=== PATIENT | male | born 1940 | race Caucasian/White ===

== ENCOUNTER → 2018-09-19 10:08 | Outpatient (CLI) | payer OTHER, SELFPAY ==
[2018-09-19 11:31] LABS: Add Manual Diff / Slide Review NO; Basophils Absolute Auto 100 /uL (0-100); Eosinophils Absolute Auto 300 /uL (0-450); Eosinophils Percent Auto 3.9 % (2-4); Hematocrit 38.8 % (41-53); Hemoglobin 12.8 g/dL (13.5-17.5); Lymphocytes Absolute Auto 1000 /uL (1100-4500); Mean Corpuscular HGB Conc 32.9 % (30-36); Mean Corpuscular Hemoglobin 32.8 PG (26-34); Mean Corpuscular Volume 99.8 fL (80-100); Monocytes Absolute Auto 800 /uL (0-900); Monocytes Percent Auto 9.4 % (3-14); Neutrophils Absolute Auto 6600 /uL (1500-7000); Neutrophils Percent Auto 74.7 % (50-75); Platelet Count 241 X10^3/uL (150-400); Red Blood Cell Count 3.89 X10^6/uL (4.5-5.9); Red Cell Distribution Width 14.3 % (11.6-14.8); White Blood Cell Count 8.9 X10^3/uL (4.5-11.0)
[2018-09-19 12:23] LABS: Hemoglobin A1C% w Est Avg Glu 6.7 % (4.0-6.0)
[2018-09-19 12:37] LABS: BUN Creatinine Ratio 19.3 (6-22); Blood Urea Nitrogen 29 mg/dL (9-20); Calcium 9.6 mg/dL (8.4-10.2); Carbon Dioxide 27 mmol/L (22-32); Chloride 100 mmol/L (98-107); Estimated Glomerular Filt Rate 45.6 mL/min (>60); Glucose 148 mg/dL (80-110); HEMOLYSIS < 15 (0-50); Potassium 5.1 mmol/L (3.4-5.1); Sodium 139 mmol/L (137-145)
== END ==
PROVIDERS: PCP Hospitalist; Visit Provider Physician Assistant
DX: R73.9 Hyperglycemia, unspecified (principal); Z01.818 Encounter for other preprocedural examination
CPT/HCPCS: 36415; 80048; 83036; 85025

== ENCOUNTER 2018-10-10 10:11 | Inpatient (IN) | payer OTHER, SELFPAY ==
[2018-09-20 12:38] VITALS: BMI 31.1
[2018-10-10] VITALS (21 sets, daily range): BP systolic 157–204; BP diastolic 63–100; PULSE 55–92; RESP 10–27; TEMP 36–36.9; O2SAT 86–100; BMI 31.1
[2018-10-10] MEDS: LACTATED RINGERS 1,000 ML 42 ML IV ×2 (11:17→15:08)
--- NOTE | 2018-10-10 11:42 | PM.PREOP ---
Pre-operative Note Interval Note History & Physical reviewed/Exam performed by Physician: Yes Changes to H&P: No
[2018-10-10] MEDS: CEFAZOLIN 2 GM/100 ML FROZ.PIGGY IV ×2 (12:05→21:03)
--- NOTE | 2018-10-10 12:56 | SUR.OPER ---
Supine, head on gel donut. Arms padded with gel pads, tucked at sides, towel roll under shoulders. Safety belt at thigh. Legs uncrossed.
--- NOTE | 2018-10-10 13:14 | SUR.OPER ---
CBG = 124
--- NOTE | 2018-10-10 14:29 | P.OP_ITS ---
Operative Date/Time/Diagnoses Date of procedure: 10/10/18 Time of procedure: 12:26 Pre-op diagnosis: 1. C4-5, C5-6 spinal stenosis 2. 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 C4-5, C5-6 anterior cervical diskectomy and fusion 2. C4-5, C5-6 anterior interbody cage placement 3. C4-5, C5-6 anterior instrumentation with plate and screw placement in C4, C5, C6 vertebrae 4. Utilization of microsurgical technique and operating microscope Same procedure as scheduled: Yes Indications: Patient has been having chronic neck pain and worsening cervical radiculopathy. Patient failed multiple conservative management with worsening pain weakness and numbness in her upper extremity. Patient has been having difficulty performing activity of daily living. After discussing risks benefits of treatment options, patient elected proceed with surgery. Surgeon: Mahnaz Mederos Multiple Punch Press Operator: Rubi Mock Click Yes if Unassisted: No Anesthesia Type: General Operative Notes Closure Type: primary Specimen(s): none sent Prosthetic devices, grafts, tissues, transplants, or devices: GLobus extend plate, PEEK cages Estimated Blood Loss (mL): 10 Blood products transfused: none Procedure in detail: Patient was seen in the preoperative area. Risks and benefits of the surgery was discussed with the patient. Operative consent was obtained and placed in the chart. Patient was then taken to the operative room. Prophylactic antibiotic was given less than 0.5 hr prior to skin incision. General anesthesia was administered. Patient was placed into a supine position on her radiolucent table. Bilateral shoulders were taped down to allow proper C- arm imaging. Anterior cervical area was prepped and draped in a sterile fashion. Time-out was performed at this time. Using lateral C-arm imaging, the level between C4 and C6 was identified and marked on patient's neck. A oblique incision from midline towards medial border of sternocleidomastoid muscle was made. The platysma muscle was incised in line with skin incision. Metzenbaum scissor was used to develop the plane between the medial border of sternocleidomastoid d and the strap muscles medially. The carotid sheath and its contents were identified and protected behind the hand- held retractor during the entire case. The plane between the carotid sheath and strap muscles was developed with Metzenbaum scissors. Dissection was made down to the level of the anterior cervical fascia. Longus colli muscle was incised on the anterior aspect of vertebral bodies bilaterally from C4-6. Spinal needle was placed into the C5-6 disc space and confirmed with lateral C-arm imaging. Using microsurgical technique and operative microscope, anterior cervical diskectomy was performed at C4-5, C5-6 level. This was done by removing the disc material, removing the anterior and posterior osteophytes posterior longitudinal ligaments along with performing bilateral foraminotomies at both levels. Patient was found to have severe central and foraminal stenosis at both levels. Patient's stenosis was fully decompressed after decompression was completed. After the diskectomy was completed, 2 anterior interbody cages were obtained. The cages were packed with globus via cell bone grafting material. One cage each along with the bone grafting material was then packed into the interbody spaces from C4-5, C5-6 with one cage into each interbody level. After the cages were placed, the anterior cervical plate was stabilized to the C4-5, C5-6 vertebrae using 2 screws at each each level. Total 6 screws were placed. After confirming placement of the hardware with AP and lateral C-arm imaging, the screws were locked into the plate using the locking mechanism and torque limiting screwdriver. After the hardware was placed and confirmed with AP and lateral C-arm imaging, the wound was irrigated with sterile normal saline. The platysma muscle and the subcutaneous tissue was closed with 2-0 Vicryl. The skin was closed with 4-0Monocryl and Steri-Strips. Patient tolerated the procedure well. Patient was transferred recovery room in stable condition. There were no complications. Complications: none Condition: stable Disposition: PACU Plan for aftercare: Admit to inpatient hospital
--- NOTE | 2018-10-10 14:36 | DI.RAD.S_ITS ---
PROCEDURE: XR CERVICAL SPINE 2V OR 3V INDICATIONS: C4-5, C5-6 ACDF TECHNIQUE: 2 intraoperative fluoroscopic view(s) of the cervical spine were acquired. COMPARISON: None. FINDINGS: Intraoperative fluoroscopic images of cervical spine shows anterior fusion of 3 cervical spine vertebral bodies. Alignment of cervical spine is anatomic. IMPRESSION: Fluoroscopy guidance was provided intraoperatively for anterior fusion of 3 cervical spine vertebral bodies. Dictated by: Tj Montoya M.D. on 10/10/2018 at 15:01 Approved by: Tj Montoya M.D. on 10/10/2018 at 15:04
--- NOTE | 2018-10-10 14:55 | SUR.PHASEI ---
Dr. Sandhu continues to be at bedside. Pt c/o having neck pain. Dr. Sandhu medicated pt with 50 mcg Fentayl IV.
--- NOTE | 2018-10-10 15:04 | SUR.PHASEI ---
labetalol 20mg IV given per anesthesia, see anesthesia record.
[2018-10-10] MEDS: AMLODIPINE 5 MG TABLET PO ×2 (15:13→21:08)
--- NOTE | 2018-10-10 15:13 | SUR.PHASEI ---
IV SITE ON LEFT HAND CLEAR AND INTACT, INFUSING WITHOUT ANY DIFFICULTLY.
--- NOTE | 2018-10-10 15:27 | SUR.PHASEI ---
REPORT CALLED TO [facility] IN ICU. PER DR. GAYTAN, PT OK TO BE TRANSFERRED TO ICU AT THIS TIME. PT IN STABLE CONDITION, VSS. PT SITTING UP IN BED WITH EYES CLOSED, EASILY RESPONDS TO RN WHEN SPOKEN TO. IV SITE CLEAR AND INFUSING WITHOUT DIFFICULTLY. PT DENIES ANY NAUSEA. PT HAS EQUAL STRENGTH/SENSTATION IN ALL FOUR EXTREMITIES. PT TOLERATING ICE CHIPS WITHOUT ANY DIFFICULTLY. DRSG OBSERVED TO BE C/D/I AND SOFT COLLAR IN PLACE.
--- NOTE | 2018-10-10 15:50 | SUR.PHASEI ---
PT TRANSFERRED TO ICU IN STABLE CONDITION, VSS REMAINED STABLE. PT TRANSFERRED ON 4L NASAL CANNULA, 02 SATS AT 96-98%. PT TALKING TO RN DURING TRANSPORT TO ICU. BEDSIDE REPORT GIVEN TO [facility] UPON ARRIVAL TO ICU ROOM. TRANSFERRED CARE OF PT TO [facility] AT THAT TIME.
[2018-10-10] MEDS: OXYCODONE IR 5 MG TABLET 10 MG PO ×2 (16:03→19:02)
[2018-10-10] MEDS: SODIUM CHLORIDE 0.9% 1,000 ML 100 ML IV (16:16)
[2018-10-10] MEDS: ASCORBIC ACID 500 MG TABLET PO ×2 (16:21→21:08)
--- NOTE | 2018-10-10 16:41 | PC.NURSE ---
Addendum entered by Miriam Oneill R.N. 10/10/18 16:59: 1659 - Dr. Huddleston gave verbal order to give tonight's dose of metoprolol now. BP 163/70. Original Note: 1545 - Patient brought to room 104 by PACU nurse. Alert and oriented with pleasant affect. States pain is 8/10. Dressing to neck C/D/I. 98% on 2L O2. CPAP at bedside. Oriented to room and call light, call light within reach. in room.
[2018-10-10] MEDS: METOPROLOL IR 25 MG TABLET PO (17:01)
[2018-10-10] MEDS: INSULIN GLARGINE 100 UNIT/ML 3ML PEN 60 UNIT SUBCUT (17:27)
[2018-10-10] MEDS: INSULIN ASPART 100 UNIT/ML INSULN PEN SUBCUT ×2 (17:28→20:44)
[2018-10-10] MEDS: INSULIN ASPART 100 UNIT/ML INSULN PEN 20 UNIT SUBCUT (17:28)
--- NOTE | 2018-10-10 18:07 | PM.CN ---
History of Present Illness Date Patient Seen: 10/10/18 Chief complaint: [id number] C3-6 ACDF Reason for consult: Hypertension Requesting provider: Alen Sandhu Narrative: George Lo is a 77-year-old male with past medical history significant for coronary artery disease status post AR and CABG x3 with 2 of 3 vessel occlusion and collaterals with recent stress test demonstrating emmy-infarct around fixed defect, claudication with 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 Hospitalist service was consulted for postoperative hypertension and possible lateral ischemia on EKG. Dr. Sandhu of anesthesiology called hospitalist service during postop PACU recovery and reported hypertension with SBP 180-190s with EKG changes of ST deviation in lateral leads. At that time due to patient's complex past medical history, called on-call crimp setter Dr. Valdivia who related that this was likely hypertension causing cardiac strain and to control his blood pressure closely. Instructed anesthesiology to give the patient labetalol 20 mg IV x1 and his long-acting antihypertensive amlodipine 5 mg once. The patient's blood pressure responded appropriately and his systolic blood pressure has come down to the 160s. The patient is resting in bed comfortably. He reports + 5/10 neck pain which he is a high level for him. He reports a +3/10 would be manageable. He also reports that it is hard to make his head position comfortable. Otherwise, he denies headache, vision changes, lightheadedness, dizziness, chest pain, shortness of breath, abdominal pain, nausea, vomiting, fever, chills, previous dysuria, diarrhea or constipation. He has not voided since surgery. He is eating dinner and reports good appetite. FORMERLY [facility], [facility] Medical History Anemia (Acute) Arteriosclerotic heart disease (ASHD) (Acute) BPH (benign prostatic hyperplasia) (Acute) CKD (chronic kidney disease), stage III (Acute) Chronic gastritis (Acute) Chronic low back pain (Acute) Constipation (Acute) BRYANT (dyspnea on exertion) (Acute) Degenerative arthritis of spine (Acute) Diabetes mellitus with renal manifestation (Acute) Disease of thyroid gland (Acute) Easy bruisability (Acute) Erectile dysfunction (Acute) Former smoker (Acute) Gynecomastia (Acute) Hypercalcemia (Acute) Hyperlipidemia (Acute) Hypertension (Acute) Impaired hearing (Acute) Impairment of balance (Acute) Leg pain, bilateral (Acute) Median nerve palsy (Acute) Numbness (Acute) ALEJANDRA on CPAP (Acute) Pneumonia (Acute) Sciatic pain (Acute) Sickle cell anemia (Acute) Spinal stenosis (Acute) Urinary retention (Acute) Surgical History History of arthroplasty of left shoulder (Acute) History of arthroplasty of right knee (Acute) History of bilateral carpal tunnel release (Acute) History of colonoscopy (Acute) History of lumbar fusion (Acute 01/11/17) History of parathyroid surgery (Acute) History of vasectomy (Acute) Hx of appendectomy (Acute) Hx of arthroscopy of right knee (Acute) Hx of tonsillectomy (Acute) S/P CABG x 3 (Acute) S/P TURP (status post transurethral resection of prostate) (Acute) Status post cataract extraction of both eyes with insertion of intraocular lens (Acute) Family History Father Heart attack Mother No problems noted. Social History household members: spouse Smoking Status: Former smoker alcohol intake: former Family History Father Heart attack Mother No problems noted. Social History household members: spouse Smoking Status: Former smoker alcohol intake: former Comment: Patient has been for 57 years. He has 4 children who are all healthy. He is a previous smoker of 3 PPD x 30 years, quit in 1989. Meds Home Medications Medication Instructions Recorded Confirmed Type FERROUS SULFATE 325 mg PO QAM #0 12/25/16 10/10/18 History Novolog Flexpen U-100 Insulin 14 unit SQ QAM #0 12/25/16 10/10/18 History amlodipine [Norvasc] 5 mg PO HS #0 12/25/16 10/10/18 History ascorbic acid (vitamin C) 500 mg PO TID #0 12/25/16 09/20/18 History aspirin 81 mg PO BEDTIME #0 12/25/16 10/10/18 History atorvastatin [Lipitor] 80 mg PO BEDTIME #0 12/25/16 10/10/18 History calcium carbonate [Tums] 500 mg PO BID #0 12/25/16 10/10/18 History cholecalciferol (vitamin D3) 2,000 iu PO BID #0 12/25/16 10/10/18 History [Vitamin D3] insulin glargine [Lantus Solostar 60 unit SQ QPM #0 12/25/16 09/20/18 History U-100 Insulin] lisinopril 5 mg PO QDAY #0 12/25/16 09/20/18 History magnesium oxide 500 mg PO QDAY #0 12/25/16 10/10/18 History metoprolol tartrate 25 mg PO BID #0 12/25/16 10/10/18 History potassium chloride 10 meq PO BID #0 12/25/16 10/10/18 History insulin aspart U-100 [Novolog 12 unit SUBCUT QNOON 09/20/18 09/20/18 History PenFill U-100 Insulin] insulin aspart U-100 [Novolog 1 - 8 unit SUBCUT DAILY PRN 09/20/18 09/20/18 History U-100 Insulin aspart] insulin aspart U-100 [Novolog 20 unit SUBCUT QPM 09/20/18 09/20/18 History U-100 Insulin aspart] Allergies Allergy/AdvReac Type Severity Reaction Status Date / Time NSAIDS (Non-Steroidal AdvReac Severe No NSAIDs Verified 10/10/18 10:48 Anti-Inflamma due to Kidney Disease No Known Allergies Allergy Uncoded 11/28/17 11:54 Review of Systems Review of Systems A 10 system comprehensive review of systems was conducted with the patient and found to be negative except as above in the History of Present Illness. Exam Vital Signs (past 8 hours): - 10/10/18 10:53 10/10/18 14:33 10/10/18 14:38 Temperature 96.8 F L 97.6 F Pulse Rate 56 L 92 H 86 Respiratory Rate 15 17 12 Blood Pressure 158/74 H 176/81 H 182/100 H Pulse Oximetry 98 86 L 93 10/10/18 14:43 10/10/18 14:48 10/10/18 14:53 Temperature Pulse Rate 82 84 81 Respiratory Rate 19 17 14 Blood Pressure 191/96 H 204/94 H 199/98 H Pulse Oximetry 98 97 98 10/10/18 14:58 10/10/18 15:03 10/10/18 15:08 Temperature Pulse Rate 74 61 57 L Respiratory Rate 18 10 L 10 L Blood Pressure 185/88 H 157/66 H 170/71 H Pulse Oximetry 95 95 99 10/10/18 15:13 10/10/18 15:18 10/10/18 15:28 Temperature Pulse Rate 64 62 55 L Respiratory Rate 10 L 10 L 12 Blood Pressure 168/77 H 167/80 H 168/76 H Pulse Oximetry 99 98 100 10/10/18 15:33 10/10/18 15:45 10/10/18 16:00 Temperature 97.1 F L Pulse Rate 60 56 L 56 L Respiratory Rate 14 18 27 H Blood Pressure 171/77 H 168/63 H Pulse Oximetry 98 97 97 Oxygen Delivery Method Nasal Cannula Oxygen Flow Rate 6 Narrative Exam Narrative: General: Elderly male with neck roll in place lying in bed and in no acute distress, appears comfortable, well-developed, well-nourished, appropriately interactive. HEENT: Normocephalic, atraumatic. External ears without defect. Pupils equal, round, and reactive to light. Anicteric sclerae, moist conjunctivae, and no lid lag. Oropharynx free of erythema and cobble stoning with moist mucosa. Neck: Supple with full range of motion. No lymphadenopathy or thyromegaly. Cardiovascular: Regular rate and rhythm without murmurs, rubs, or gallops appreciated. Pulmonary: Clear to auscultation bilaterally in anterior lung lopez without crackles, wheezes, or rhonchi. Normal respiratory effort with no use of accessory muscles. Abdomen: Soft, bowel sounds present, nontender, nondistended. No hepatosplenomegaly or masses appreciated. Extremities: No clubbing, cyanosis, or edema. Skin: Normal temperature, turgor, and texture; no rash, ulcers, or subcutaneous nodules appreciated. Several small abrasions on left pretibial area. Neurological: Cranial nerves grossly intact. Psychiatric: Normal mood and affect. Alert and oriented to person, place, and time. Objective Labs Result Diagrams: 10/11/18 04:59 10/11/18 04:59 Labs: Laboratory Results - last 24 hr 10/10/18 16:10 Nasal Screen MRSA (PCR) Negative for mrsa Assessment & Plan Assessment & Plan narrative: George Lo is a 77-year-old male with past medical history significant for coronary artery disease status post AR and CABG x3 with 2 of 3 vessel occlusion and collaterals with recent stress test demonstrating emmy-infarct around fixed defect, claudication with 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 Hospitalist service was consulted for postoperative hypertension and possible lateral ischemia on EKG. 1. Postoperative hypertension, not present on admission. Active. -Likely multifactorial related to: Pain and NPO not on normal antihypertensives. -Called on-call crimp setter, Dr. Valdivia, who related that this was likely hypertension causing cardiac strain in lateral leads on EKG and to control his blood pressure closely. -Patient postoperatively received labetalol 20 mg IV x1 and amlodipine 5 mg x1 per transitional living specialist crimp setter, Dr. Valdivia. -Will continue patient's home antihypertensive including amlodipine 5 mg daily bedtime, lisinopril 5 mg daily, and metoprolol tartrate 25 mg twice daily. -Ordered labetalol 20 mg IV every 4 hr as needed to be given for SBP greater than 180 sustained for 30 min. -Continue to monitor closely in ICU on telemetry with blood pressures every 15-30 min as patient is high risk of postoperative AR. -Control postoperative pain per Orthopedics. 2. Coronary artery disease status post CABG x3 with 2 of 3 vessel occlusion and collaterals, present on admission. Presumed stable. -Continue cardiac medications including: Aspirin 81 mg daily, amlodipine 5 mg daily at bedtime, atorvastatin 80 mg daily bedtime, lisinopril 5 mg daily, and metoprolol tartrate 25 mg twice daily. 3. 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 Active. -Defer to Orthopedics for postoperative and pain management. 4. Diabetes mellitus type 2, insulin using, present on admission. Stable. -Hemoglobin A1c 6.7% on 09/19/2018. -Continue home Lantus 60 units daily at bedtime. Will continue nutritional insulin once taking in good p.o. intake. -Ordered medium dose correctional scale insulin. 5. Chronic kidney disease stage 2, present on admission. Stable. -Baseline creatinine 1.5. Ordered CMP, pending. -Avoid nephrotoxin agents. -Optimize renal perfusion. -Monitor renal function closely. Thank you for consulting our services. We will follow along with you.
[2018-10-10] MEDS: LABETALOL 20 MG/4 ML SYRINGE IV (18:26)
[2018-10-10 21:05] LABS: Add Manual Diff / Slide Review NO; Basophils Absolute Auto 0 /uL (0-100); Basophils Percent Auto 0.3 % (0-2); Eosinophils Absolute Auto 0 /uL (0-450); Hematocrit 39.2 % (41-53); Lymphocytes Absolute Auto 400 /uL (1100-4500); Lymphocytes Percent Auto 2.7 % (25-40); Mean Corpuscular HGB Conc 33.1 % (30-36); Mean Corpuscular Hemoglobin 32.2 PG (26-34); Mean Corpuscular Volume 97.2 fL (80-100); Monocytes Absolute Auto 200 /uL (0-900); Monocytes Percent Auto 1.5 % (3-14); Neutrophils Absolute Auto 15000 /uL (1500-7000); Neutrophils Percent Auto 95.5 % (50-75); Platelet Count 243 X10^3/uL (150-400); Red Blood Cell Count 4.04 X10^6/uL (4.5-5.9); Red Cell Distribution Width 14.9 % (11.6-14.8); White Blood Cell Count 15.7 X10^3/uL (4.5-11.0)
[2018-10-10] MEDS: CALCIUM CARBONATE 500 MG TAB PO (21:08)
[2018-10-10] MEDS: ASPIRIN EC 81 MG TABLET PO (21:08)
[2018-10-10] MEDS: CHOLECALCIFEROL (VITAMIN D3) 1,000 UNIT TABLET 2000 UNIT PO (21:08)
[2018-10-10] MEDS: ATORVASTATIN 20 MG TABLET 80 MG PO (21:08)
[2018-10-10] MEDS: POTASSIUM CHLORIDE 10 MEQ TAB PO (21:09)
[2018-10-10] MEDS: SENNOSIDES 8.6 MG TABLET 17.2 MG PO (21:09)
[2018-10-10] MEDS: DOCUSATE 100 MG CAPSULE PO (21:09)
[2018-10-10 21:20] LABS: Alanine Aminotransferase 37 IU/L (21-72); Albumin 4.3 g/dL (3.5-5.0); Albumin Globulin Ratio 1.5 (1.0-2.8); Alkaline Phosphatase 114 U/L (38-126); Aspartate Aminotransferase 24 IU/L (17-59); Bilirubin Total 0.4 mg/dL (0.2-1.3); Blood Urea Nitrogen 30 mg/dL (9-20); Carbon Dioxide 23 mmol/L (22-32); Chloride 99 mmol/L (98-107); Estimated Glomerular Filt Rate 45.6 mL/min (>60); Globulin 2.9 g/dL (1.7-4.1); Glucose 241 mg/dL (80-110); HEMOLYSIS < 15 (0-50); Potassium 4.4 mmol/L (3.4-5.1); Sodium 137 mmol/L (137-145); Total Protein 7.2 g/dL (6.3-8.2)
[2018-10-10 21:29] LABS: Troponin I < 0.012 ng/mL (0.01-0.034)
[2018-10-10 22:00] LABS: Thyroid Stimulating Hormone 1.25 uIU/mL (0.47-4.68)
--- NOTE | 2018-10-10 22:46 | PC.NURSE ---
4843 - Patient has not urinated since PACU. Attempted to urinate into urinal at bedside without success. Stated that he has had catheters in the past and then had trouble getting off of them. Bladder scan shows 575 in bladder. Patient states 500 is nothing for me, I used to straight cath myself and get 1000 in the mornings. Discussed possibly placing cevallos catheter this evening. Patient refuses cevallos placement at this time stating that he would like to wait a bit longer and try to urinate again. Patient drinking water and IV fluids running per order.
[2018-10-11] VITALS (12 sets, daily range): BP systolic 139–193; BP diastolic 63–85; PULSE 61–84; RESP 14–20; TEMP 36–37.2; O2SAT 92–96
[2018-10-11] MEDS: SODIUM CHLORIDE 0.9% 1,000 ML 100 ML IV (02:56)
[2018-10-11] MEDS: CEFAZOLIN 2 GM/100 ML FROZ.PIGGY IV (04:04)
[2018-10-11 06:08] LABS: BUN Creatinine Ratio 21.4 (6-22); Blood Urea Nitrogen 30 mg/dL (9-20); Calcium 8.8 mg/dL (8.4-10.2); Carbon Dioxide 22 mmol/L (22-32); Chloride 98 mmol/L (98-107); Estimated Glomerular Filt Rate 49.4 mL/min (>60); Glucose 272 mg/dL (80-110); HEMOLYSIS < 15 (0-50); Potassium 5.1 mmol/L (3.4-5.1); Sodium 134 mmol/L (137-145)
[2018-10-11 06:16] LABS: Add Manual Diff / Slide Review NO; Basophils Absolute Auto 0 /uL (0-100); Basophils Percent Auto 0.1 % (0-2); Eosinophils Absolute Auto 0 /uL (0-450); Hematocrit 35.9 % (41-53); Hemoglobin 12.1 g/dL (13.5-17.5); Lymphocytes Absolute Auto 400 /uL (1100-4500); Lymphocytes Percent Auto 2.5 % (25-40); Mean Corpuscular HGB Conc 33.8 % (30-36); Mean Corpuscular Hemoglobin 32.8 PG (26-34); Monocytes Absolute Auto 800 /uL (0-900); Monocytes Percent Auto 4.8 % (3-14); Neutrophils Absolute Auto 15600 /uL (1500-7000); Neutrophils Percent Auto 92.6 % (50-75); Platelet Count 241 X10^3/uL (150-400); Red Cell Distribution Width 14.5 % (11.6-14.8); White Blood Cell Count 16.8 X10^3/uL (4.5-11.0)
--- NOTE | 2018-10-11 07:32 | PM.PN.1 ---
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 Hospitalist service was consulted for postoperative hypertension and possible lateral ischemia on EKG. The patient is resting in bed comfortably. He reports no neck pain currently. Blood pressure well-controlled with patient's oral regimen and pain control. He denies headache, lightheadedness or dizziness, vision changes, shortness of breath, chest pain, abdominal pain, nausea, vomiting, fever, chills, dysuria, diarrhea or constipation. He is voiding and eliminating without difficulty. He or she is up ambulating without or with assistance. Exam Vital Signs (past 8 hours): - 10/11/18 00:00 10/11/18 01:00 10/11/18 02:00 Temperature 96.8 F L Pulse Rate 84 75 71 Respiratory Rate 16 15 16 Blood Pressure 158/72 H 143/64 H 139/68 Pulse Oximetry 92 93 93 10/11/18 03:00 10/11/18 04:00 Temperature 98.9 F Pulse Rate 80 66 Respiratory Rate 15 14 Blood Pressure 176/83 H 150/63 H Pulse Oximetry 94 96 Oxygen Delivery Method Nasal Cannula Oxygen Flow Rate 6 Narrative Exam Narrative: General: Elderly male with neck roll in place lying in bed and in no acute distress, appears comfortable, well-developed, well-nourished, appropriately interactive. HEENT: Normocephalic, atraumatic. External ears without defect. Pupils equal, round, and reactive to light. Anicteric sclerae, moist conjunctivae, and no lid lag. Oropharynx free of erythema and cobble stoning with moist mucosa. Neck: Supple with full range of motion. No lymphadenopathy or thyromegaly. Cardiovascular: Regular rate and rhythm without murmurs, rubs, or gallops appreciated. Pulmonary: Clear to auscultation bilaterally in anterior lung lopez without crackles, wheezes, or rhonchi. Normal respiratory effort with no use of accessory muscles. Abdomen: Soft, bowel sounds present, nontender, nondistended. No hepatosplenomegaly or masses appreciated. Extremities: No clubbing, cyanosis, or edema. Skin: Normal temperature, turgor, and texture; no rash, ulcers, or subcutaneous nodules appreciated. Neurological: Cranial nerves grossly intact. Psychiatric: Normal mood and affect. Alert and oriented to person, place, and time. Objective Labs Result Diagrams: 10/11/18 04:59 10/11/18 04:59 Labs: Laboratory Results - last 24 hr 10/10/18 10/10/18 10/10/18 16:10 21:01 21:01 WBC 15.7 H RBC 4.04 L Hgb 13.0 L Hct 39.2 L MCV 97.2 MCH 32.2 MCHC 33.1 RDW 14.9 H Plt Count 243 Neut % (Auto) 95.5 H Lymph % (Auto) 2.7 L Richardson % (Auto) 1.5 L Eos % (Auto) 0.0 L Baso % (Auto) 0.3 Neut # (Auto) 00651 H Lymph # (Auto) 400 L Richardson # (Auto) 200 Eos # (Auto) 0 Baso # (Auto) 0 Sodium 137 Potassium 4.4 Chloride 99 Carbon Dioxide 23 BUN 30 H Creatinine 1.50 H Estimated GFR 45.6 L BUN/Creatinine Ratio 20.0 Glucose 241 H Calcium 9.0 Magnesium 2.0 Total Bilirubin 0.4 AST 24 ALT 37 Alkaline Phosphatase 114 Troponin I < 0.012 Total Protein 7.2 Albumin 4.3 Globulin 2.9 Albumin/Globulin Ratio 1.5 TSH Nasal Screen MRSA (PCR) Negative for mrsa 10/10/18 10/11/18 10/11/18 21:01 04:59 04:59 WBC 16.8 H RBC 3.70 L Hgb 12.1 L Hct 35.9 L MCV 97.0 MCH 32.8 MCHC 33.8 RDW 14.5 Plt Count 241 Neut % (Auto) 92.6 H Lymph % (Auto) 2.5 L Richardson % (Auto) 4.8 Eos % (Auto) 0.0 L Baso % (Auto) 0.1 Neut # (Auto) 61931 H Lymph # (Auto) 400 L Richardson # (Auto) 800 Eos # (Auto) 0 Baso # (Auto) 0 Sodium 134 L Potassium 5.1 Chloride 98 Carbon Dioxide 22 BUN 30 H Creatinine 1.40 H Estimated GFR 49.4 L BUN/Creatinine Ratio 21.4 Glucose 272 H Calcium 8.8 Magnesium Total Bilirubin AST ALT Alkaline Phosphatase Troponin I Total Protein Albumin Globulin Albumin/Globulin Ratio TSH 1.25 Nasal Screen MRSA (PCR) Assessment & Plan Assessment & Plan narrative: George Lo is a 77-year-old male with past medical history significant for coronary artery disease status post SD and CABG x3 with 2 of 3 vessel occlusion and collaterals with recent stress test demonstrating emmy-infarct around fixed defect, claudication with 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 Hospitalist service was consulted for postoperative hypertension and possible lateral ischemia on EKG. 1. Postoperative hypertension, not present on admission. Controlled and significant hypertension resolved . -Likely multifactorial related to: Pain and NPO not on normal antihypertensives. -Called on-call consulting solution director, Dr. Valdivia, who related that this was likely hypertension causing cardiac strain in lateral leads on EKG and to control his blood pressure closely. -Patient postoperatively received labetalol 20 mg IV x1 and amlodipine 5 mg x1 per waste elimination consulting solution director, Dr. Valdivia. -Will continue patient's home antihypertensive including amlodipine 5 mg daily bedtime, lisinopril 5 mg daily, and metoprolol tartrate 25 mg twice daily. -Ordered labetalol 20 mg IV every 4 hr as needed to be given for SBP greater than 180 sustained for 30 min. -Troponin negative. -Continue to monitor vital signs and telemetry closely as patient is high risk of postoperative SD. Recommend patient follow up closely with his consulting solution director outpatient. -Control postoperative pain control per Orthopedics. 2. Coronary artery disease status post CABG x3 with 2 of 3 vessel occlusion and collaterals, present on admission. Presumed stable. -Continue cardiac medications including: Aspirin 81 mg daily, amlodipine 5 mg daily at bedtime, atorvastatin 80 mg daily bedtime, lisinopril 5 mg daily, and metoprolol tartrate 25 mg twice daily. -Continue to monitor closely on telemetry. 3. 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 Active. -Defer to Orthopedics for postoperative and pain management. 4. Acute leukocytosis, secondary to recent surgery, not present on admission. Stable. -Patient status post is extensive cervical surgery. -Patient has no signs of infection. -Continue to monitor CBC daily. 5. Diabetes mellitus type 2, insulin using, present on admission. Stable. -Hemoglobin A1c 6.7% on 09/19/2018. -Continue home insulin regimen including: Lantus 60 units daily at bedtime, nutritional and correctional scale insulin. 6. Chronic kidney disease stage 2, present on admission. Stable. -Baseline creatinine 1.5. Creatinine unchanged. -Avoid nephrotoxin agents. -Optimize renal perfusion. -Monitor renal function closely. Thank you for consulting our services. We will sign off at this time. Please don't hesitate to call for questions or further assistance if needed.
--- NOTE | 2018-10-11 07:37 | P.PN_ITS ---
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 Hospitalist service was consulted for postoperative hypertension and possible lateral ischemia on EKG. The patient is resting in bed comfortably. He reports no neck pain currently. Blood pressure well-controlled with patient's oral regimen and pain control. He denies headache, lightheadedness or dizziness, vision changes, shortness of breath, chest pain, abdominal pain, nausea, vomiting, fever, chills, dysuria, diarrhea or constipation. He is voiding and eliminating without difficulty. He or she is up ambulating without or with assistance. Exam Vital Signs (past 8 hours): - 10/11/18 00:00 10/11/18 01:00 10/11/18 02:00 Temperature 96.8 F L Pulse Rate 84 75 71 Respiratory Rate 16 15 16 Blood Pressure 158/72 H 143/64 H 139/68 Pulse Oximetry 92 93 93 10/11/18 03:00 10/11/18 04:00 Temperature 98.9 F Pulse Rate 80 66 Respiratory Rate 15 14 Blood Pressure 176/83 H 150/63 H Pulse Oximetry 94 96 Oxygen Delivery Method Nasal Cannula Oxygen Flow Rate 6 Narrative Exam Narrative: General: Elderly male with neck roll in place lying in bed and in no acute distress, appears comfortable, well-developed, well-nourished, appropriately interactive. HEENT: Normocephalic, atraumatic. External ears without defect. Pupils equal, round, and reactive to light. Anicteric sclerae, moist conjunctivae, and no lid lag. Oropharynx free of erythema and cobble stoning with moist mucosa. Neck: Supple with full range of motion. No lymphadenopathy or thyromegaly. Cardiovascular: Regular rate and rhythm without murmurs, rubs, or gallops ap preciated. Pulmonary: Clear to auscultation bilaterally in anterior lung lopez without crackles, wheezes, or rhonchi. Normal respiratory effort with no use of accessory muscles. Abdomen: Soft, bowel sounds present, nontender, nondistended. No hepatosplenomegaly or masses appreciated. Extremities: No clubbing, cyanosis, or edema. Skin: Normal temperature, turgor, and texture; no rash, ulcers, or subcutaneous nodules appreciated. Neurological: Cranial nerves grossly intact. Psychiatric: Normal mood and affect. Alert and oriented to person, place, and time. Objective Labs Result Diagrams: 10/11/18 04:59 10/11/18 04:59 Labs: Laboratory Results - last 24 hr 10/10/18 10/10/18 10/10/18 16:10 21:01 21:01 WBC 15.7 H RBC 4.04 L Hgb 13.0 L Hct 39.2 L MCV 97.2 MCH 32.2 MCHC 33.1 RDW 14.9 H Plt Count 243 Neut % (Auto) 95.5 H Lymph % (Auto) 2.7 L Hanson % (Auto) 1.5 L Eos % (Auto) 0.0 L Baso % (Auto) 0.3 Neut # (Auto) 11597 H Lymph # (Auto) 400 L Hanson # (Auto) 200 Eos # (Auto) 0 Baso # (Auto) 0 Sodium 137 Potassium 4.4 Chloride 99 Carbon Dioxide 23 BUN 30 H Creatinine 1.50 H Estimated GFR 45.6 L BUN/Creatinine Ratio 20.0 Glucose 241 H Calcium 9.0 Magnesium 2.0 Total Bilirubin 0.4 AST 24 ALT 37 Alkaline Phosphatase 114 Troponin I < 0.012 Total Protein 7.2 Albumin 4.3 Globulin 2.9 Albumin/Globulin Ratio 1.5 TSH Nasal Screen MRSA (PCR) Negative for mrsa 10/10/18 10/11/18 10/11/18 21:01 04:59 04:59 WBC 16.8 H RBC 3.70 L Hgb 12.1 L Hct 35.9 L MCV 97.0 MCH 32.8 MCHC 33.8 RDW 14.5 Plt Count 241 Neut % (Auto) 92.6 H Lymph % (Auto) 2.5 L Hanson % (Auto) 4.8 Eos % (Auto) 0.0 L Baso % (Auto) 0.1 Neut # (Auto) 41604 H Lymph # (Auto) 400 L Hanson # (Auto) 800 Eos # (Auto) 0 Baso # (Auto) 0 Sodium 134 L Potassium 5.1 Chloride 98 Carbon Dioxide 22 BUN 30 H Creatinine 1.40 H Estimated GFR 49.4 L BUN/Creatinine Ratio 21.4 Glucose 272 H Calcium 8.8 Magnesium Total Bilirubin AST ALT Alkaline Phosphatase Troponin I Total Protein Albumin Globulin Albumin/Globulin Ratio TSH 1.25 Nasal Screen MRSA (PCR) Assessment & Plan Assessment & Plan narrative: George Lo is a 77-year-old male with past medical history significant for coronary artery disease status post GA and CABG x3 with 2 of 3 vessel occlusion and collaterals with recent stress test demonstrating emmy-infarct around fixed defect, claudication with 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 Hospitalist service was consulted for postoperative hypertension and possible lateral ischemia on EKG. 1. Postoperative hypertension, not present on admission. Controlled and significant hypertension resolved . -Likely multifactorial related to: Pain and NPO not on normal antihypertensives. -Called on-call senior gamemaster, Dr. Valdivia, who related that this was likely hypertension causing cardiac strain in lateral leads on EKG and to control his blood pressure closely. -Patient postoperatively received labetalol 20 mg IV x1 and amlodipine 5 mg x1 per risk control field representative senior gamemaster, Dr. Valdivia. -Will continue patient's home antihypertensive including amlodipine 5 mg daily bedtime, lisinopril 5 mg daily, and metoprolol tartrate 25 mg twice daily. -Ordered labetalol 20 mg IV every 4 hr as needed to be given for SBP greater than 180 sustained for 30 min. -Troponin negative. -Continue to monitor vital signs and telemetry closely as patient is high risk of postoperative GA. Recommend patient follow up closely with his senior gamemaster outpatient. -Control postoperative pain control per Orthopedics. 2. Coronary artery disease status post CABG x3 with 2 of 3 vessel occlusion and collaterals, present on admission. Presumed stable. -Continue cardiac medications including: Aspirin 81 mg daily, amlodipine 5 mg daily at bedtime, atorvastatin 80 mg daily bedtime, lisinopril 5 mg daily, and metoprolol tartrate 25 mg twice daily. -Continue to monitor closely on telemetry. 3. 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 Active. -Defer to Orthopedics for postoperative and pain management. 4. Acute leukocytosis, secondary to recent surgery, not present on admission. Stable. -Patient status post is extensive cervical surgery. -Patient has no signs of infection. -Continue to monitor CBC daily. 5. Diabetes mellitus type 2, insulin using, present on admission. Stable. -Hemoglobin A1c 6.7% on 09/19/2018. -Continue home insulin regimen including: Lantus 60 units daily at bedtime, nutritional and correctional scale insulin. 6. Chronic kidney disease stage 2, present on admission. Stable. -Baseline creatinine 1.5. Creatinine unchanged. -Avoid nephrotoxin agents. -Optimize renal perfusion. -Monitor renal function closely. Thank you for consulting our services. We will sign off at this time. Please don't hesitate to call for questions or further assistance if needed.
[2018-10-11] MEDS: DOCUSATE 100 MG CAPSULE PO ×2 (08:15→20:34)
[2018-10-11] MEDS: ASCORBIC ACID 500 MG TABLET PO ×3 (08:15→20:35)
[2018-10-11] MEDS: FERROUS SULFATE 325 MG TABLET PO (08:15)
[2018-10-11] MEDS: CALCIUM CARBONATE 500 MG TAB PO ×2 (08:15→20:33)
[2018-10-11] MEDS: INSULIN ASPART 100 UNIT/ML INSULN PEN 14 UNIT SUBCUT (08:16)
[2018-10-11] MEDS: LISINOPRIL 5 MG TABLET PO (08:16)
[2018-10-11] MEDS: METOPROLOL IR 25 MG TABLET PO ×2 (08:16→20:35)
[2018-10-11] MEDS: INSULIN ASPART 100 UNIT/ML INSULN PEN SUBCUT ×4 (08:23→20:40)
--- NOTE | 2018-10-11 10:02 | PM.PNPO.1 ---
Subjective Date Patient Seen: 10/11/18 Interval history: Patient seen bedside status post C3-4, C4-5, C5-[address] Mederos on 10/10/2018. Patient is postop day 1. When patient was in the PACU anesthesia discovered hypertension with SBP 180-190s with EKG changes of ST deviation in lateral leads. Dr. Huddleston from the hospitalist team was consulted and called the on-call engineering inspection assistant, Dr. Valdivia. Dr. Valdivia related that this was likely hypertension causing cardiac strain and recommended tight BP control. Patient's blood pressure responded well to medications. Hospitalist Service signed off today. His 7:00 a.m. pressure today was a little bit high with a systolic of 175 however by 10:30am it was 158/75. He has also had difficulty urinating and has only urinated once. Patient has a history of some urinary retention. Exam Vital Signs (past 8 hours): - 10/11/18 03:00 10/11/18 04:00 10/11/18 07:49 Temperature 98.9 F 98.3 F Pulse Rate 80 66 79 Respiratory Rate 15 14 18 Blood Pressure 176/83 H 150/63 H 175/85 H Pulse Oximetry 94 96 96 10/11/18 08:16 Temperature Pulse Rate Respiratory Rate Blood Pressure 170/85 H Pulse Oximetry Oxygen Delivery Method Nasal Cannula Oxygen Flow Rate 6 Narrative Exam Narrative: Well-developed well-nourished no acute distress. Alert and oriented x3. Dressing on the anterior neck is clean dry and intact with no signs of drainage. Minimal generalized erythema and swelling around the incision site. Upper extremities show no focal deficits he is neurovascularly intact bilaterally. Objective Labs Result Diagrams: 10/11/18 04:59 10/11/18 04:59 Labs: Laboratory Results - last 24 hr 10/10/18 10/10/18 10/10/18 16:10 21:01 21:01 WBC 15.7 H RBC 4.04 L Hgb 13.0 L Hct 39.2 L MCV 97.2 MCH 32.2 MCHC 33.1 RDW 14.9 H Plt Count 243 Neut % (Auto) 95.5 H Lymph % (Auto) 2.7 L Baldwin % (Auto) 1.5 L Eos % (Auto) 0.0 L Baso % (Auto) 0.3 Neut # (Auto) 34602 H Lymph # (Auto) 400 L Baldwin # (Auto) 200 Eos # (Auto) 0 Baso # (Auto) 0 Sodium 137 Potassium 4.4 Chloride 99 Carbon Dioxide 23 BUN 30 H Creatinine 1.50 H Estimated GFR 45.6 L BUN/Creatinine Ratio 20.0 Glucose 241 H Calcium 9.0 Magnesium 2.0 Total Bilirubin 0.4 AST 24 ALT 37 Alkaline Phosphatase 114 Troponin I < 0.012 Total Protein 7.2 Albumin 4.3 Globulin 2.9 Albumin/Globulin Ratio 1.5 TSH Nasal Screen MRSA (PCR) Negative for mrsa 10/10/18 10/11/18 10/11/18 21:01 04:59 04:59 WBC 16.8 H RBC 3.70 L Hgb 12.1 L Hct 35.9 L MCV 97.0 MCH 32.8 MCHC 33.8 RDW 14.5 Plt Count 241 Neut % (Auto) 92.6 H Lymph % (Auto) 2.5 L Baldwin % (Auto) 4.8 Eos % (Auto) 0.0 L Baso % (Auto) 0.1 Neut # (Auto) 66522 H Lymph # (Auto) 400 L Baldwin # (Auto) 800 Eos # (Auto) 0 Baso # (Auto) 0 Sodium 134 L Potassium 5.1 Chloride 98 Carbon Dioxide 22 BUN 30 H Creatinine 1.40 H Estimated GFR 49.4 L BUN/Creatinine Ratio 21.4 Glucose 272 H Calcium 8.8 Magnesium Total Bilirubin AST ALT Alkaline Phosphatase Troponin I Total Protein Albumin Globulin Albumin/Globulin Ratio TSH 1.25 Nasal Screen MRSA (PCR) Assessment & Plan Post-op Postoperative Procedures Operation Date: 10/10/18 12:15 Actual Procedures Side Surgeon p C3-4, C4-5, C5-6 ACDF w/Anterior instru Mahnaz Mederos MD 1. POD #1 s/p above procedure-appears that cardiac strain noted yesterday in the PACU is resolving. Patient's pressure still was a little high this morning however so would like to monitor and ensure that he has good blood pressure control prior to discharge. He should follow up with engineering inspection assistant within a week of discharge. PT today and downgrade to telemetry. 2. Multiple medical morbidities-hospitalist was consulted yesterday and is confirmed that the patient is stable at this time and has signed off. 3. Postop urinary retention-patient has urinated once with an unknown amount. Would like patient to be urinating regularly with little residual prior to discharge. The patient is expressed understanding of the medical decision making and are amenable to the treatment plan. Dispo-d/c home first thing in the morning if BP is stable and he is regularly urinating.
--- NOTE | 2018-10-11 10:58 | PT.IIE ---
Current Diagnoses Other spondylosis with radiculopathy, cervical region (10/10/18) Spinal stenosis, cervical region (10/10/18) Surgery Performed Operation Date: 10/10/18 12:15 Actual Procedures p C3-4, C4-5, C5-6 ACDF w/Anterior marlon - Mahnaz Mederos MD Surgical History (Last Reviewed 10/10/18 @ 18:24 by Lidya Huddleston DO) History of arthroplasty of left shoulder (Acute) History of arthroplasty of right knee (Acute) History of bilateral carpal tunnel release (Acute) History of colonoscopy (Acute) History of lumbar fusion (Acute 01/11/17) History of parathyroid surgery (Acute) History of vasectomy (Acute) Hx of appendectomy (Acute) Hx of arthroscopy of right knee (Acute) Hx of tonsillectomy (Acute) S/P CABG x 3 (Acute) S/P TURP (status post transurethral resection of prostate) (Acute) Status post cataract extraction of both eyes with insertion of intraocular lens (Acute) Medical History (Last Reviewed 10/10/18 @ 18:24 by Lidya Huddleston DO) Anemia (Acute) Arteriosclerotic heart disease (ASHD) (Acute) BPH (benign prostatic hyperplasia) (Acute) CKD (chronic kidney disease), stage III (Acute) Chronic gastritis (Acute) Chronic low back pain (Acute) Constipation (Acute) BRYANT (dyspnea on exertion) (Acute) Degenerative arthritis of spine (Acute) Diabetes mellitus with renal manifestation (Acute) Disease of thyroid gland (Acute) Easy bruisability (Acute) Erectile dysfunction (Acute) Former smoker (Acute) Gynecomastia (Acute) Hypercalcemia (Acute) Hyperlipidemia (Acute) Hypertension (Acute) Impaired hearing (Acute) Impairment of balance (Acute) Leg pain, bilateral (Acute) Median nerve palsy (Acute) Numbness (Acute) ALEJANDRA on CPAP (Acute) Pneumonia (Acute) Sciatic pain (Acute) Sickle cell anemia (Acute) Spinal stenosis (Acute) Urinary retention (Acute) Physical Therapy Inpatient Evaluation/Re-Eval M1 PT/OT-IP Prior Functional Status Start: 10/11/18 11:30 Freq: NEEDED Status: Active Protocol: Document 10/11/18 10:58 AB (Rec: 10/11/18 11:52 AB [id number]) Medical Review Prior Functional Status Medical History Reviewed Yes Communication able to make needs known Mobility and Gait stated that he is independent with all mobilities and ambulation without AD but can only ambulate short distances due to chronic LBP Social History Household Members spouse Living Arrangements House Number of Floors (Floors) One Floor Number of Stairs To Enter/Railing? has a ramp to enter from the front; has 3 steps from the garage with bilateral rails Home Environment Walk in Shower Built-In Shower Seat Home Equipment Front Wheel Walker Hand Held Shower Grab Bars Near Toilet Grab Bars In Shower Employment Status Retired Additional Social History Comment has a handicapped height toilet has an adjustable sleep number bed has a tripod cane M2 PT-IP Current Condition Start: 10/11/18 11:30 Freq: NEEDED Status: Active Protocol: Document 10/11/18 10:58 AB (Rec: 10/11/18 11:52 AB [id number]) Physical Therapy Current Condition Current Condition Evaluation Date 10/11/18 Treatment Diagnosis s/p C4-6 ACDF; difficulty in walking Onset Date 10/10/18 Precautions Cervical Spine Precautions Soft Collar for Comfort No Heavy Lifting Log Roll M3 PT-IP Subjective Start: 10/11/18 11:30 Freq: NEEDED Status: Active Protocol: Document 10/11/18 10:58 AB (Rec: 10/11/18 11:52 AB [id number]) Subjective Physical Therapy Visit Type Type Initial Evaluation Visit Start Time 10:58 Visit Stop Time 11:25 Total Visit Minutes 27 Number of [employer] WORK[employer]POS[employer]ES Visits 0 Physical Therapy Visit Comments Patient Comments pt agreeable to do PT Therapy Pain Assessment Pain Present Pain Present Denied Pain M4 PT-IP Mobility and Gait Start: 10/11/18 11:30 Freq: NEEDED Status: Active Protocol: Document 10/11/18 10:58 AB (Rec: 10/11/18 11:52 AB [id number]) PT-Bed Mobility Assessment Rolling Type of Rolling Log Rolling Level of Assist Independent Supine to Sit Supine to Sit Independent Sit to Supine Sit to Supine Independent PT-Transfer Assessment Sit to and From Stand Sit to and from Stand Standby Assistance Equipment Transfer Assistive Device None Gait Belt Gait Assessment Gait Gait Assistance Required: Standby Assistance Distance (Feet) 200 Able to Maintain Weight Bearing Status Yes During Gait Assistive Devices Assistive Device None Gait Belt Orthotic/Prosthetic Devices or Brace: Yes Gait Deviations General Gait Pattern Antalgic Factors Limiting Gait Function Factors Limiting Gait Function Decreased Activity Tolerance Decreased Strength Pain PT-Balance Assessment Sitting Balance and Reactions Static Sitting Balance Ability Good Dynamic Sitting Balance Ability Good Standing Balance and Reactions Static Standing Balance Ability Good Dynamic Standing Balance Ability Fair Device Used without AD M5 PT-IP Objective Assessments Start: 10/11/18 11:30 Freq: NEEDED Status: Active Protocol: Document 10/11/18 10:58 AB (Rec: 10/11/18 11:52 AB [id number]) Orientation Orientation/Cognition Level of Alertness Alert Orientation Name Age Birthday Month Date Year Day of Week Place Situation Language Function Ability No Deficits Noted Safety Awareness Understands Safety Issues Memory Description No Deficits Noted Gross Range of Motion Lower Extremity ROM Assessment Within Functional Limits Strength Lower Extremity Strength Assessment Within Functional Limits Coordination Assessment Gross Coordination Gross Coordination WNL Sensation Assessment Sensation Gross Sensation WNL Muscle Tone Muscle Tone WNL Yes M6 PT-IP Treatment Start: 10/11/18 11:30 Freq: NEEDED Status: Active Protocol: Document 10/11/18 10:58 AB (Rec: 10/11/18 11:52 AB [id number]) Physical Therapy Treatment Education Education Provided Precautions Post-Op Packet Safety Brace Education [place] Patient Caregiver Other Treatments Other Treatment Performed pt and caregiver education completed for collar management M7 PT-IP Assessment and Plan Start: 10/11/18 11:30 Freq: NEEDED Status: Active Protocol: Document 10/11/18 10:58 AB (Rec: 10/11/18 11:52 AB [id number]) PT Summary Assessment and Plan Potential Rehabilitation Potential Good Status of Condition at Evaluation Stable Summary Impairments Pain ROM Strength Balance Transfers Gait Activity Tolerance Assessment Summary pt requiring SBA with mobility and plans to go home with spouse to assist. will conduct stair climbing training prior to d/c. pt may go home when medically stable . Goals Transfer Goal Independent Gait Goal Independent Gait Distance 200 Other Goals up/down 3 steps B rail SBA Days to Meet Goals 3 Frequency of Treatment Frequency Of Treatment Twice a Day Treatment Plan Physical Therapy Treatment Plan Bed Mobility Training Transfer Training Gait Training Therapeutic Exercise Balance Retraining Post Op Education Discharge Planning Hot or Cold Pack Neuromuscular Re-ed Coordination Retraining Manual Therapy Other Recommendations and Next Treatment stair climbing training Focus Recommendations To Nursing Amount of Assist Needed Standby Assistance Discharge Recommendations PT Discharge Recommendations Home with Assistance
[2018-10-11] MEDS: INSULIN ASPART 100 UNIT/ML INSULN PEN 12 UNIT SUBCUT (12:54)
--- NOTE | 2018-10-11 14:00 | PT.IPTN ---
Current Diagnoses Other spondylosis with radiculopathy, cervical region (10/10/18) Spinal stenosis, cervical region (10/10/18) Surgery Performed Operation Date: 10/10/18 12:15 Actual Procedures p C3-4, C4-5, C5-6 ACDF w/Anterior dashau Juancho Mederos MD Physical Therapy Treatment Note M2 PT-IP Current Condition Start: 10/11/18 11:30 Freq: NEEDED Status: Active Protocol: Document 10/11/18 10:58 AB (Rec: 10/11/18 11:52 AB [id number]) Physical Therapy Current Condition Current Condition Evaluation Date 10/11/18 Treatment Diagnosis s/p C4-6 ACDF; difficulty in walking Onset Date 10/10/18 Precautions Cervical Spine Precautions Soft Collar for Comfort No Heavy Lifting Log Roll M3 PT-IP Subjective Start: 10/11/18 11:30 Freq: NEEDED Status: Active Protocol: Document 10/11/18 14:00 AB (Rec: 10/11/18 14:52 AB [id number]) Subjective Physical Therapy Visit Type Type Treatment Note Visit Start Time 14:00 Visit Stop Time 14:12 Total Visit Minutes 12 Number of SCREEDMAN Visits 0 Physical Therapy Visit Comments Patient Comments pt agreeable to do PT Therapy Pain Assessment Pain Present Pain Present Denied Pain M4 PT-IP Mobility and Gait Start: 10/11/18 11:30 Freq: NEEDED Status: Active Protocol: Document 10/11/18 14:00 AB (Rec: 10/11/18 14:52 AB [id number]) PT-Transfer Assessment Sit to and From Stand Sit to and from Stand Independent Gait Assessment Gait Gait Assistance Required: Standby Assistance Distance (Feet) 150 Able to Maintain Weight Bearing Status Yes During Gait Assistive Devices Assistive Device None Gait Belt Orthotic/Prosthetic Devices or Brace: No Gait Deviations General Gait Pattern Antalgic Factors Limiting Gait Function Factors Limiting Gait Function Decreased Activity Tolerance Stair Climbing Assessment Evaluation Level of Assist On Stairs Standby Assistance 1 Person Assistance Devices Stair Climbing Assistive Devices Left Railing Technique/Endurance Stair Climbing Direction Ascend and Descend Stair Climbing Technique Step to Step Number of Steps Climbed 1 Query Text: Stair Climbing Set # Repetitions (reps) 6 Comments Stair Climbing Comments pt completed up/down step stool with L rail ascending requiring SBA. M5 PT-IP Objective Assessments Start: 10/11/18 11:30 Freq: NEEDED Status: Active Protocol: Document 10/11/18 10:58 AB (Rec: 10/11/18 11:52 AB [id number]) Orientation Orientation/Cognition Level of Alertness Alert Orientation Name Age Birthday Month Date Year Day of Week Place Situation Language Function Ability No Deficits Noted Safety Awareness Understands Safety Issues Memory Description No Deficits Noted Gross Range of Motion Lower Extremity ROM Assessment Within Functional Limits Strength Lower Extremity Strength Assessment Within Functional Limits Coordination Assessment Gross Coordination Gross Coordination WNL Sensation Assessment Sensation Gross Sensation WNL Muscle Tone Muscle Tone WNL Yes M6 PT-IP Treatment Start: 10/11/18 11:30 Freq: NEEDED Status: Active Protocol: Document 10/11/18 14:00 AB (Rec: 10/11/18 14:52 AB [id number]) Physical Therapy Treatment Education Education Provided Safety M7 PT-IP Assessment and Plan Start: 10/11/18 11:30 Freq: NEEDED Status: Active Protocol: Document 10/11/18 14:00 AB (Rec: 10/11/18 14:52 AB [id number]) PT Summary Assessment and Plan Potential Rehabilitation Potential Good Summary Impairments ROM Gait Activity Tolerance Progress Towards Goals Progressing Toward Goals Assessment Summary pt doing well with mobility. pt cautious with safety and activity level and is safe to go home with spouse to assist him at home. pt plans to go home tomorrow. No further PT intervention indicated at this time. will d/c pt from PT. Frequency of Treatment Frequency Of Treatment Discharge Treatment Plan Physical Therapy Treatment Plan Bed Mobility Training Transfer Training Gait Training Therapeutic Exercise Balance Retraining Post Op Education Discharge Planning Hot or Cold Pack Neuromuscular Re-ed Coordination Retraining Manual Therapy Other Recommendations and Next Treatment stair climbing training Focus Recommendations To Nursing Amount of Assist Needed Standby Assistance Discharge Recommendations PT Discharge Recommendations Home with Assistance
[2018-10-11] MEDS: BENZOCAINE/MENTHOL 1 LOZ PKT 1 EACH PO ×4 (14:37→20:33)
--- NOTE | 2018-10-11 15:18 | OT.IP.TRT ---
Current Diagnoses Other spondylosis with radiculopathy, cervical region (10/10/18) Spinal stenosis, cervical region (10/10/18) Surgery Performed Operation Date: 10/10/18 12:15 Actual Procedures p C3-4, C4-5, C5-6 ACDF w/Anterior instru - Mahnaz Mederos MD Occupational Therapy Treatment Note M3 OT- IP Subjective and Pain Start: 10/11/18 15:13 Freq: Status: Active Protocol: Document 10/11/18 15:14 [facility] (Rec: 10/11/18 15:18 [facility] [id number]) OT- Subjective Occupational Therapy Visit Type Type Administrative Note Notes Pt independent for needs for mobility per PT. Pt has been able to use the toilet on his own. Pt able to show therapist able to luana/doff socks on his own and will have assist at home. Pt already has cervical information sheet and has good understanding for all needs. Therefore discharge OT eval orders.
--- NOTE | 2018-10-11 16:08 | CM.DANOTE ---
Discharge Planning/Care Management DCP: assessment: case received, EMR reviewed and discussed in Team Rounds this morning. Pt is a 77 year old male who admitted yesteday for a scheduled spinal/cervical surgery: SurgeonL Dr. Mederos. Hospitalist: consulted while pt was still in PACU for medical concerns. Payer: [facility] (have confirmed that pt also has Medicare and for Life with [employer] ) Admission status: INPT: confirmed by UR RN Khoa. PT and OT were ordered. Dr. Huddleston noted in rounds that she was signing off as hospitalist after making recommendation to POC. Ortho MARQUES Tolentino noted that pt would likely go home but she was keeping him until tomorrow with plan for home is he was stable for same. Checked now with PT: pt is independent with his functional abilities and she has deemed him stable for the home setting with prn family support. OT order was cancelled as deemed no longer needed. P: check in tomorrow and follow prn. CM Discharge Assessment Start: 10/11/18 16:07 Freq: Status: Active Protocol: Document 10/11/18 16:07 ITV (Rec: 10/11/18 16:08 ITV [id number]) Discharge Planning Assessment Advance Directives? Yes: DPOA,Living Will Advance Directives on File Yes History Provided By Medical Record Prior Living Arrangements House Household Members spouse Review Status In Process Next Review Type Continued Stay Review Pre-Anesthesia Assessment Start: 09/20/18 12:38 Freq: Status: Complete Protocol: Document 09/20/18 12:38 CAB (Rec: 09/20/18 13:40 CAB [id number]) Pre-Anesthesia Assessment PAC Comment Cardiology recommends monitoring closely in CCU post -operatively per visit 09/12/18 (scanned to record). Dr. Mederos's office notified 09/24/18 Patient Also Known As (KAREN) Giovanny Patient Information Reviewed Via Phone Assessment Assessment Completed With Patient Spouse Diagnostic Results BMP/CMP CBC EKG Primary Care Provider Mariah Dalal Seen Specialist in Last 12 Months Yes Specialist Seen Button Sawyer Catering Service Manager Orthopedist Primary Language Malay Stem Lead Former Required No Height 182.88 cm Weight 104.326 kg Body Mass Index (BMI) 31.1 Hearing Ability Hard of Hearing Use of Hearing Aid Visual Assist Glasses Dentition Type Teeth, Natural Present Barriers to Learning None Other Aids No Hx Anesthesia Reactions No Hx Family Anesthesia Reaction No Hx Malignant Hyperthermia No Hx Blood Transfusions No Anesthesia Review Requested No Manager Hotel No alcohol intake former Smoking Status Former smoker Tobacco type cigarettes how long ago did patient quit smoking Quit 1989 Substance Use Type does not use Pain Present Pain Reported Musculoskeletal Symptoms Back Pain Difficulty Walking Muscle Weakness Neck Pain Numbness History of Falling (Recent or History of No ) Patient is completely paralyzed or No completely immobile Mental Status Oriented to own ability Is patient on oxygen? No Does patient have BRYANT/SOB Yes: BRYANT, chronic Hx Sleep Apnea Yes CPAP/BIPAP use prescribed and used routinely Will Bring CPAP/BIPAP DOS Yes Currently Taking a Beta Tomas Yes Can You Climb a Flight of Stairs Without No SOB Hx Chest Pain No Hx SOB Yes: BRYANT, chronic Hx Syncope or Dizziness No Anti-Coagulant Therapy No Has a Button Sawyer Yes: Dr. Alcala Cardiac Testing Yes: Cath, ECHO, Nuc stress, BLE doppler US Hx Pacemaker/ICD No Pacemaker Rep Required? No Comment Cardiac notes, testing scanned to chart Diet Type At Home Regular dysphagia No Bladder Pattern Retention Urinary Catheter Present No Hx Urinary Self Catheterization No Diabetes Yes HgbA1C 6.1 Comment Per Hx Drug Resistant Organism No Presence of External or Internal Medical No Devices Have you traveled outside the [place] in the last 30 days? Marital Status Lives With spouse Prior Living Arrangements House Number of Floors (Floors) One Floor Number of Stairs To Enter/Railing? ramp in front Support System Spouse Does the Patient Have Assistance After Yes Surgery Patient Discharge Plan Description Return Home Comment Pt advised overnight length of stay per surgeon's office Feels Safe in Current Environment Yes Been Physically Hurt or Threatened By a No Person in Current Environment Do you have thoughts of harming yourself None or others? Are you currently considering suicide? No Do you have a plan to hurt yourself or No Plan others? Do You Have Any Spiritual Beliefs That No May Affect Your HC Choices? Do You Have Any Cultural Practices That No May Affect Your HC Choices? Spiritual Referral None Comment [employer] Who Can We Speak to About Patient's Care Family only Identifying Code for Release of Patient Declines to issue Information Health Care Proxy/Next of Kin Edita () Health Care Proxy or [phone] Emergency Contact Name Edita () Emergency Contact or [phone] Advance Directives? Yes Advance Directives on File Yes Requested Patient Bring Advanced No Directives DOS Power of Timber Management Assistant Yes Power of Timber Management Assistant Name Diann Robles ( daughter) Power of Timber Management Assistant Phone Number Edita: [phone] or Diann:[phone] PAC Instructions Bring CPAP/BIPAP Medications to take/avoid Nasal antibiotic No ETOH/petroleum product on skin DOS NPO Post-op transportation Pre-surgical wash Sturdy shoes/comfortable clothes Do not bring valuables and remove jewelry
[2018-10-11] MEDS: INSULIN ASPART 100 UNIT/ML INSULN PEN 20 UNIT SUBCUT (16:47)
[2018-10-11] MEDS: INSULIN GLARGINE 100 UNIT/ML 3ML PEN 60 UNIT SUBCUT (16:47)
[2018-10-11] MEDS: OXYCODONE IR 5 MG TABLET 10 MG PO ×2 (18:37→20:32)
[2018-10-11] MEDS: SODIUM CHLORIDE 0.9% FLUSH 10 ML IV (20:33)
[2018-10-11] MEDS: CHOLECALCIFEROL (VITAMIN D3) 1,000 UNIT TABLET 2000 UNIT PO (20:34)
[2018-10-11] MEDS: POTASSIUM CHLORIDE 10 MEQ TAB PO (20:34)
[2018-10-11] MEDS: ATORVASTATIN 20 MG TABLET 80 MG PO (20:35)
[2018-10-11] MEDS: ASPIRIN EC 81 MG TABLET PO (20:35)
[2018-10-11] MEDS: AMLODIPINE 5 MG TABLET PO (20:35)
[2018-10-11] MEDS: SENNOSIDES 8.6 MG TABLET 17.2 MG PO (20:36)
[2018-10-12 00:18] VITALS: BP 178/89; PULSE 65; RESP 18; TEMP 36.3; O2SAT 96
[2018-10-12 04:13] VITALS: BP 164/72; PULSE 68; RESP 18; TEMP 37.2; O2SAT 98
[2018-10-12] MEDS: OXYCODONE IR 5 MG TABLET 10 MG PO (04:13)
[2018-10-12 07:54] VITALS: BP 192/87; PULSE 76; RESP 16; TEMP 36.6; O2SAT 96
[2018-10-12] MEDS: LISINOPRIL 5 MG TABLET PO (07:54)
[2018-10-12] MEDS: ASCORBIC ACID 500 MG TABLET PO (07:55)
[2018-10-12] MEDS: METOPROLOL IR 25 MG TABLET PO (07:55)
[2018-10-12] MEDS: CHOLECALCIFEROL (VITAMIN D3) 1,000 UNIT TABLET 2000 UNIT PO (07:55)
[2018-10-12] MEDS: DOCUSATE 100 MG CAPSULE PO (07:55)
[2018-10-12] MEDS: MAGNESIUM OXIDE 400 MG TABLET PO (07:56)
[2018-10-12] MEDS: CALCIUM CARBONATE 500 MG TAB PO (07:56)
[2018-10-12] MEDS: FERROUS SULFATE 325 MG TABLET PO (07:56)
[2018-10-12] MEDS: POTASSIUM CHLORIDE 10 MEQ TAB PO (07:56)
[2018-10-12] MEDS: INSULIN ASPART 100 UNIT/ML INSULN PEN 14 UNIT SUBCUT (08:17)
--- NOTE | 2018-10-12 09:40 | PM.DS.1 ---
History of Present Illness Date Patient Seen: 10/12/18 Time Patient Seen: 09:30 Chief complaint: [id number] C3-6 ACDF Narrative: Patient has been having chronic neck pain and worsening cervical radiculopathy. Patient failed multiple conservative management with worsening pain weakness and numbness in her upper extremity. Patient has been having difficulty performing activity of daily living. After discussing risks benefits of treatment options, patient elected proceed with surgery. Discharge Providers Date of admission: 10/10/18 10:11 Primary care physician: Mariah Dalal Consults: 10/10/18 11:17 Consult to Respiratory Therapy Evaluate & Treat Comment: Physician Instructions: Evaluate and treat 10/10/18 15:49 Consult to Occupational Therapy Evaluate & Treat Comment: Physician Instructions: Evaluate and treat Consult to Physical Therapy Evaluate & Treat Comment: Physician Instructions: Evaluate and Treat Discharge provider: Keily Abdul PA-C Discharge Date: 10/12/18 Summary Discharge Diagnosis: s/p ACDF Sleep apnea restless leg syndrome parathryoidism history of kidney stones hypertension hyperlipidemia Diabetes type 2 Coronary artery disease Colon tubular adenoma Chronic kidney disease stage III BPH Cervical spinal stenosis Hospital Course: George was admitted for C4-6 ACDF with and he consented to procedure. On POD #2 patient was ready to DC home. He was eating and voiding without difficulty or assistance. Hospital course was remarkable for hypertension. When patient was in the PACU patient had hypertension with SBP 180-190s with EKG changes of ST deviation in lateral leads. Dr. Huddleston from the hospitalist team was consulted and called the on-call vp strategic planning, Dr. Valdivia. Dr. Valdivia related that this was likely hypertension causing cardiac strain and recommended tight BP control. Patient postoperatively received labetalol 20 mg IV x1 and amlodipine 5 mg x1 per nutritional services cook vp strategic planning, Dr. Valdivia. Cntinue patient's home antihypertensive including amlodipine 5 mg daily bedtime, lisinopril 5 mg daily, and metoprolol tartrate 25 mg twice daily. His blood sugar was monitored and well controlled at 120 at time of discharge. He did have urinary retention that resolved. He has a long history of BPH. Status at Discharge Functional status at discharge: uses cane/walker Exam Vital Signs (past 8 hours): - 10/12/18 04:13 10/12/18 07:54 Temperature 99.0 F 97.8 F Pulse Rate 68 76 Respiratory Rate 18 16 Blood Pressure 164/72 H 192/87 H Pulse Oximetry 98 96 Oxygen Delivery Method Nasal Cannula Oxygen Flow Rate 6 Narrative Exam Narrative: Patient sitting in bedside chair in no acute distress. He is alert and oriented X3. Dressing on neck is CDI. Calves are soft, compressible, and nontender bilaterally. Radial pulses are symmetrical. SILT throughout BUEs. Shuffle Board Operator strength strong and equal. His pain has been well controlled with Oxycodone. He states he has been on flomax in the past and does not want to start at this time as he is urinating on his own without difficulty. Objective Labs Result Diagrams: 10/11/18 04:59 10/11/18 04:59 Discharge Plan Discharge Plan Patient Disposition: Home Discharge comment: DC home today Discharge Med Rec/Prescriptions Prescriptions: New acetaminophen 325 mg Tablet 650 mg PO Q6HR PRN (Reason: Pain, Mild (1-3)) Qty: 60 RF: 0 docusate sodium 100 mg Capsule 100 mg PO BID Qty: 60 RF: 0 oxycodone 5 mg capsule 5 mg PO Q4-6H PRN (Reason: pain) Qty: 60 RF: 0 Continued cholecalciferol (vitamin D3) [Vitamin D3] 2,000 UNIT capsule 2,000 iu PO BID Qty: 0 RF: 0 lisinopril 5 MG tablet 5 mg PO QDAY Qty: 0 RF: 0 FERROUS SULFATE 325 mg PO QAM Qty: 0 RF: 0 Novolog Flexpen U-100 Insulin 100 UNIT/1 ML insulin pen 14 unit SQ QAM Qty: 0 RF: 0 metoprolol tartrate 25 MG tablet 25 mg PO BID Qty: 0 RF: 0 potassium chloride 10 MEQ capsule, extended release 10 meq PO BID Qty: 0 RF: 0 ascorbic acid (vitamin C) 500 MG tablet 500 mg PO TID Qty: 0 RF: 0 calcium carbonate [Tums] 500 MG tablet,chewable 500 mg PO BID Qty: 0 RF: 0 magnesium oxide 400 MG capsule 500 mg PO QDAY Qty: 0 RF: 0 atorvastatin [Lipitor] 80 MG tablet 80 mg PO BEDTIME Qty: 0 RF: 0 amlodipine [Norvasc] 5 MG tablet 5 mg PO HS Qty: 0 RF: 0 aspirin 81 MG tablet,delayed release (DR/EC) 81 mg PO BEDTIME Qty: 0 RF: 0 insulin glargine [Lantus Solostar U-100 Insulin] 100 UNIT/1 ML insulin pen 60 unit SQ QPM Qty: 0 RF: 0 insulin aspart U-100 [Novolog U-100 Insulin aspart] 100 unit/mL Solution 20 unit subcut QPM RF: 0 insulin aspart U-100 [Novolog U-100 Insulin aspart] 100 unit/mL Solution 1 - 8 unit SUBCUT DAILY PRN (Reason: sliding scale for correction) RF: 0 insulin aspart U-100 [Novolog PenFill U-100 Insulin] 100 unit/mL Cartridge 12 unit SUBCUT QNOON RF: 0 Follow up/Referrals: DR. TY ( CARDIOLOGY) SENIOR MARKET RESEARCH ANALYST [Other] - 10/15/18 11:05 am Mahnaz Mederos MD [Physician] - (Follow up in 10-14 days) Mariah Dalal [Primary Care Provider] - Provider Discharge Instructions Diet: Diet as Tolerated Activity: No excessive bending, lifting, or twisting Cold/Heat Therapy: as needed Skin/Wound/Dressing Care Report to your healthcare provider any signs of infection, such as:: chills, fever and increased pain Dressing: leave in place until post op appointment Visit Report/Discharge Packet Instructions: DI for Anterior Cervical Discectomy and Fusion Visit Report Forms: Stroke Signs & Symptoms Discharge Data Primary Care Provider: Mariah Dalal Attending Provider: Mahnaz Mederos Admit Date/Time: 10/10/18 10:11 Discharges patient from system. Discharge Date/Time: 10/12/18 10:00
--- NOTE | 2018-10-12 09:45 | PC.NURSE ---
anterior neck incision well approximated with opsite covering area. pt reports neck is sore. at bedside. saline lock dc'd
--- NOTE | 2018-10-12 10:19 | CM.DPC ---
DCP: continued: Pt was ok'd for d/c early this morning by ortho MARQUES Muhammad. He was eager to go and left for home earlier today as per his plan.
== END 2018-10-12 10:00 | disposition home or self-care (01) | DRG 472 ==
LOC: AC 11:17 → ICU 12:28
PROVIDERS: Anesthesiology; Internal Medicine; Admitting Provider Orthopaedic Surgery Orthopaedic Surgery of the Spine; Family Provider Hospitalist; PCP Hospitalist; Visit Provider Orthopaedic Surgery Orthopaedic Surgery of the Spine
PROC: 0RG20A0 Fusion of 2 or more Cervical Vertebral Joints with Interbody Fusion Device, Anterior Approach, Anterior Column, Open Approach (ICD-10-PCS; principal; 2018-10-10 12:15)
DX: M48.02 Spinal stenosis, cervical region (principal); G99.2 Myelopathy in diseases classified elsewhere; I13.10 Hypertensive heart and chronic kidney disease without heart failure, with stage 1 through stage 4 chronic kidney disease, or unspecified chronic kidney disease; N18.3 Chronic kidney disease, stage 3 (moderate); R33.9 Retention of urine, unspecified; E11.22 Type 2 diabetes mellitus with diabetic chronic kidney disease; G47.33 Obstructive sleep apnea (adult) (pediatric); G25.81 Restless legs syndrome; E78.5 Hyperlipidemia, unspecified; I25.10 Atherosclerotic heart disease of native coronary artery without angina pectoris; Z87.891 Personal history of nicotine dependence; N40.1 Benign prostatic hyperplasia with lower urinary tract symptoms; Z79.4 Long term (current) use of insulin; M47.22 Other spondylosis with radiculopathy, cervical region; E66.9 Obesity, unspecified; Z68.31 Body mass index [BMI] 31.0-31.9, adult; Z95.1 Presence of aortocoronary bypass graft
CPT/HCPCS: 36415; 72040; 76000; 80048; 80053; 82962; 83735; 84443; 84484; 85025; 87797; 93005; 97116; 97161; C1776; J0690; J1100; J2250; J2405; J2704; J3010

== ENCOUNTER 2019-03-14 06:08 | Inpatient (IN) | payer MEDICARE, OTHER, SELFPAY ==
[2018-10-10 16:30] VITALS: BMI 31.1
[2019-03-03 12:39] VITALS: BMI 32.8
[2019-03-14] VITALS (22 sets, daily range): BP systolic 115–149; BP diastolic 51–76; PULSE 50–73; RESP 9–22; TEMP 35.7–36.8; O2SAT 91–100; BMI 32.8
--- NOTE | 2019-03-14 | DI.RAD.S_ITS ---
PROCEDURE: XR LUMBAR SPINE 2-3V INDICATIONS: L3-4 TLIF TECHNIQUE: 2 views of the lumbar spine were acquired. COMPARISON: [facility], , L-SPINE 2-3 VIEWS, 01/11/2017, 9:04. FINDINGS: Bones: 5 [id number] vertebrae are present. There is normal bony alignment established after extension of L4-S1 fusion procedure to now include the L3-4 level and an interbody disc prosthesis at L3-L4.. No vertebral body compression fractures. No suspicious bony lesions. Soft tissues: Overlying bowel gas pattern is normal. No suspicious soft tissue calcifications. IMPRESSION: Excellent anatomic alignment established after extension of prior posterior spine fusion procedure with interbody disc prosthesis addition also, extending into the L3-L4 level of the lumbosacral spine. Prior fusion has been crossing from L4-S1. Dictated by: Dima Mcmillan M.D. on 03/14/2019 at 12:01 Approved by: Dima Mcmillan M.D. on 03/14/2019 at 12:02
[2019-03-14] MEDS: LACTATED RINGERS 1,000 ML 42 ML IV ×2 (06:50→09:10)
[2019-03-14] MEDS: DEXTROSE 5%-LACTATED RINGERS 1,000 ML 100 ML IV (07:32)
--- NOTE | 2019-03-14 07:46 | PM.PREOP ---
Pre-operative Note Interval Note History & Physical reviewed/Exam performed by Physician: Yes Changes to H&P: No
[2019-03-14] MEDS: CEFAZOLIN 2 GM/100 ML FROZ.PIGGY IV ×2 (08:20→16:37)
[2019-03-14] MEDS: ACETAMINOPHEN IV 1,000 MG/100 ML VIAL 400 MG IV (08:40)
--- NOTE | 2019-03-14 08:47 | SUR.OPER ---
Prone on spine table, head in foam head support, padded chest and pelvic supports, gel pad at knees, lower legs supported by pillows; nipples, genitalia and toes free of pressure, arms secured on foam padded arm boards at <90 degrees abduction. Tape over blanket at thigh secured to table.
--- NOTE | 2019-03-14 09:20 | SUR.OPER ---
700 ml urine draied from cevallos bag at 0915
[2019-03-14] MEDS: BUPIVACAINE LIPOSOME 266 MG/20 ML VIAL INJ (09:35)
[2019-03-14] MEDS: BUPIVACAINE 0.25% W/ EPI 30 ML VIAL INJ (09:35)
--- NOTE | 2019-03-14 09:57 | SUR.OPER ---
Blood glucose @ 0907 is 189. 5u regular insulin given @0913 per anesthesia.
--- NOTE | 2019-03-14 10:18 | SUR.OPER ---
Blood glucose @ 1016 is 132
[2019-03-14] MEDS: INSULIN REGULAR 100 UNIT/ML 3 ML VIAL SUBCUT (11:49)
--- NOTE | 2019-03-14 11:53 | P.OP_ITS ---
Operative Date/Time/Diagnoses Date of procedure: 03/14/19 Time of procedure: 07:50 Pre-op diagnosis: 1. Loosened spinal hardware 2. Lumbar spinal stenosis L3-4, L4-5, L5-S1 3. Lumbar spondylosis with radiculopathy 4. 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 L3-4 posterolateral and posterior interbody fusion 2. L3-4 posterior interbody cage placement 3. L4-5, L5-S1 posterior segmental instrumentation removal 4. L4-5 revision laminectomy with exploration of fusion 5. L3-4, L4-5, L5-S1 posterior segmental instrumentation with pedicle screw placement 6. L4-5 posterolatearl fusion 7. Utilization of microsurgical technique and operating microscope Same procedure as scheduled: Yes Indications: Patient has been having chronic back pain and worsening lumbar radiculopathy. Patient had prior fusion surgery and was doing well for over a year and half. Patient started having more back pain and leg pain with x-ray and CT scan showing loosened hardware and possible pseudoarthrosis. Patient failed multiple conservative management with worsening pain weakness and numbness in her lower extremity. Patient has been having difficulty performing activity of daily living. After discussing risks benefits of treatment options, patient elected proceed with surgery. Surgeon: Mahnaz Mederos Blow Pit Operator: Rubi Mock Click Yes if Unassisted: No Anesthesia Type: General Operative Notes Closure Type: primary Specimen(s): none sent Prosthetic devices, grafts, tissues, transplants, or devices: Globus revolve screws, Rise cage Applied: catheter Estimated Blood Loss (mL): 100 Procedure in detail: Patient was seen in the preoperative area. Risks and benefits of the surgery was discussed with the patient. Informed consent was obtained from the patient and placed in the chart. Surgical site was marked. Patient was taken to the operative room. General anesthesia was administered. Prophylactic antibiotic was given to the patient less than 30 min before the incision was made. Patient was placed into a prone position on the Julien table. Patient's back was then prepped and draped in the sterile fashion. Time- out was performed at this time. Using patient's previous scar incision was made over the L3-4, L4-5, L5-S1 interval on the right side. Fascia was incised in line with skin incision. Patient's previously placed hardware over the L4-5, L5-S1 level was identified by dissecting down to the level the hardware using a Bovie and a Aguilar. The locking caps which was removed using globus screwdriver. The locking natalia was then removed from the tulips of the pedicle screws using a Junior. The pedicle screws were then removed using the screwdriver. The screws were found to have good purchase except L4 screws bilaterally. The Globus and MARS retractors was then placed into the wound and docked onto the L3 lamina using C-arm guidance. Using microsurgical technique and operating microscope a laminectomy facetectomy was performed by removing the L3 lamina and the L3-4 facet. The disc space at L3-4 level was identified next. And a total diskectomy was performed at L3-4 level. The endplates were decorticated using a rasp and shaver. The total diskectomy and decortication was performed at L3-4 level in order to to accomplish a L3-4 fusion. The local bone from the laminectomy and facetectomy was saved for local bone grafting. After the total diskectomy and decortication was completed, Bio4 bone graft material was combined with local bone that was harvested earlier. The local bone and the Bio4 bone grafting material was placed into the L3-4 interbody space along with a expandable cage. The cage was expanded to its maximum height using the torque limiting screwdriver. At this time a mirror image incision was made on the left side. The fascia was incised in line with the skin incision. Patient's previously placed hardware on the left side was then removed in the same fashion as it was on the right side. The hardware was also found to have good purchase. The fusion mass on the left side was exposed by performing a left-sided hemilaminectomy at L4-5 level. The hemilaminectomy was performed using the Kerrison rongeur to undercut the lamina as well removing additional epidural scar tissue for purpose of decompressing the epidural space. The fusion mass was explored and was found have visible motion indicating pseudoarthrosis at L4-5 level. The L5-S1 fusion mass was explored and was found to be solidly fused. Globus MARS retractor was inserted and docked onto the L3-4 L4-5 posterolateral gutter. Using the power drill, posterior-lateral decortication was performed at L3-4 L4-5 level until bleeding cortical bone was identified. The remaining bone grafting material was placed into the L3-4 L4-5 posterior lateral gutter he order to accomplish pos terolateral fusion at the L3-4 L4-5 level. Using the double C-arm technique, pedicle screws were placed into the L3 ,L4 and L5, S1 pedicles bilaterally. This was done by placing the Jamshidi needle into the pedicles, then placing the guidewires over the Jamshidi needle, and finally placing the cannulated screws over the guidewires bilaterally. After the pedicle screws were placed, 2 titanium rods was locked into the heads of the pedicle screws using locking caps and torque limiting screwdriver. After all the hardware was placed, and confirmed with AP and lateral C-arm imaging, the wound was then irrigated with sterile normal saline and packed with Ray-Ciro gauze for 3 min to accomplish hemostasis. After the gauze was removed the deep fascia was closed with #1 Vicryl suture. The subcutaneous layer was closed with 2-0 Vicryl. The skin was closed with skin pat. Patient tolerated the procedure well. There were no complications. Complications: none Condition: stable Disposition: PACU Plan for aftercare: Admit to inpatient hospital
--- NOTE | 2019-03-14 12:45 | SUR.PHASEI ---
Addendum entered by Catalina Inman R.N. 03/14/19 12:49: Site with no redness or swelling noted. Original Note: Arterial Line Dc'd per hospital policy with verbal order received from Dr. Sandhu. Catheter intact upon removal, pressure applied for 5 minutes. Pressure dressing applied per policy.
--- NOTE | 2019-03-14 13:17 | SUR.PHASEI ---
pt transferred to acute care floor in stable condition, vss. pt laying in bed with eyes open and responding to RN during transport when spoken to. bedside report given to ROB Hidalgo on acute care upon arrival to room. Drsg observed to be c/d/i and vital signs stable. transferred care of pt to ROB Hidalgo at that time.
[2019-03-14] MEDS: OXYCODONE IR 5 MG TABLET PO ×3 (14:08→20:38)
[2019-03-14] MEDS: ASCORBIC ACID 500 MG TABLET PO ×2 (14:08→20:39)
[2019-03-14] MEDS: SODIUM CHLORIDE 0.9% 1,000 ML 100 ML IV (14:08)
--- NOTE | 2019-03-14 15:52 | PC.NURSE ---
Ortho: Having some decreased sats in pacu and cpap applied and O2 bled into line. Has had O2 titrated down to 3L and is currently 97-100% since coming to floor. Likes hob elevated. Recieved 1 percalone for pain and he hs been comfortable and resting quietly since. Took a sm amt of full liquid diet w/out problems. Pt is hard of hearing and bed alarm was placed and pt understands why for same. Back dressing is c/d/i. Cont w/poc.
[2019-03-14] MEDS: ACETAMINOPHEN 325 MG TABLET 650 MG PO (16:47)
[2019-03-14] MEDS: hydrOXYzine pamoate 25 MG CAPSULE PO ×2 (16:47→21:07)
[2019-03-14] MEDS: INSULIN ASPART 100 UNIT/ML INSULN PEN 20 UNIT SUBCUT (17:35)
[2019-03-14] MEDS: MAGNESIUM OXIDE 400 MG TABLET PO (17:42)
--- NOTE | 2019-03-14 20:10 | PC.NURSE ---
Shift Summary 03/14/19 [id number] PO Day 0 s/p lumbar fusion L3-S1. Pain control 10/27 on PO oxycodone, vistaril, and tylenol. H/o ASHD, CAD s/p CABG on amlodipine. Tele: sinus devante w/ HR consistently in low 50s. Sleep apnea using CPAP. SaO2 98-100% RA. DM11 insulin dependent. BG this shift 118-160, no correction.
[2019-03-14] MEDS: POTASSIUM CHLORIDE 10 MEQ TAB PO (20:38)
[2019-03-14] MEDS: ATORVASTATIN 20 MG TABLET 80 MG PO (20:38)
[2019-03-14] MEDS: CALCIUM CARBONATE 500 MG TAB PO (20:39)
[2019-03-14] MEDS: SENNOSIDES 8.6 MG TABLET 17.2 MG PO (20:39)
[2019-03-14] MEDS: INSULIN GLARGINE 100 UNIT/ML 3ML PEN 60 UNIT SUBCUT (20:40)
[2019-03-14] MEDS: CHOLECALCIFEROL (VITAMIN D3) 1,000 UNIT TABLET 2000 UNIT PO (20:40)
[2019-03-14] MEDS: AMLODIPINE 5 MG TABLET 10 MG PO (20:40)
[2019-03-15] VITALS (7 sets, daily range): BP systolic 131–155; BP diastolic 61–74; PULSE 57–79; RESP 16–18; TEMP 36.4–36.9; O2SAT 95–99
[2019-03-15] MEDS: CEFAZOLIN 2 GM/100 ML FROZ.PIGGY IV (00:11)
[2019-03-15] MEDS: SODIUM CHLORIDE 0.9% 1,000 ML 100 ML IV (00:32)
--- NOTE | 2019-03-15 01:34 | PC.NURSE ---
blood sugar was done at 2335 at patient request patient said he felt shaky
[2019-03-15 06:00] LABS: Hematocrit 37.5 % (41-53); Hemoglobin 12.9 g/dL (13.5-17.5)
[2019-03-15] MEDS: OXYCODONE IR 5 MG TABLET PO (08:10)
[2019-03-15] MEDS: MAG HYDROX/ALUM/SIMETH 30 ML UDC PO (08:10)
[2019-03-15] MEDS: ACETAMINOPHEN 325 MG TABLET 650 MG PO (08:11)
[2019-03-15] MEDS: INSULIN ASPART 100 UNIT/ML INSULN PEN SUBCUT ×2 (08:17→17:27)
[2019-03-15] MEDS: CHOLECALCIFEROL (VITAMIN D3) 1,000 UNIT TABLET 2000 UNIT PO ×2 (08:17→20:32)
[2019-03-15] MEDS: ASCORBIC ACID 500 MG TABLET PO ×3 (08:18→20:32)
[2019-03-15] MEDS: DOCUSATE 100 MG CAPSULE PO ×2 (08:18→20:32)
[2019-03-15] MEDS: LISINOPRIL 5 MG TABLET PO (08:18)
[2019-03-15] MEDS: POTASSIUM CHLORIDE 10 MEQ TAB PO ×2 (08:18→20:31)
[2019-03-15] MEDS: CALCIUM CARBONATE 500 MG TAB PO ×2 (08:18→20:33)
[2019-03-15] MEDS: METOPROLOL ER 50 MG TABLET 150 MG PO (08:18)
--- NOTE | 2019-03-15 09:45 | PT.IIE ---
Current Diagnoses Spinal stenosis, lumbar region without neurogenic claudication (03/14/19) Other mechanical complication of other internal orthopedic devices, implants and grafts, initial encounter (03/14/19) Arthrodesis status (03/14/19) Surgery Performed Operation Date: 03/14/19 07:45 Actual Procedures p L3-4 TLIF; L4-5, L5-S1 HWR; L3-4,L4-5,L5-S1 PSF w/Instru. - Mahnaz Mederos MD Surgical History (Last Updated 03/05/19 @ 10:55 by Yenifer Covington RN) Hx of angioplasty (Acute 08/07/18) Hx of cardiac catheterization (Acute 08/07/18) Hx of fusion of cervical spine (Acute 10/10/18) History of arthroplasty of left shoulder (Acute) History of arthroplasty of right knee (Acute) History of bilateral carpal tunnel release (Acute) History of colonoscopy (Acute) History of lumbar fusion (Acute 01/11/17) History of parathyroid surgery (Acute) History of vasectomy (Acute) Hx of appendectomy (Acute) Hx of arthroscopy of right knee (Acute) Hx of tonsillectomy (Acute) S/P CABG x 3 (Acute) S/P TURP (status post transurethral resection of prostate) (Acute) Status post cataract extraction of both eyes with insertion of intraocular lens (Acute) Medical History (Last Updated 03/05/19 @ 10:52 by Yenifer Covington, ROB) Arthritis (Acute) PAD (peripheral artery disease) (Acute) Anemia (Acute) Arteriosclerotic heart disease (ASHD) (Acute) BPH (benign prostatic hyperplasia) (Acute) CKD (chronic kidney disease), stage III (Acute) Chronic gastritis (Acute) Chronic low back pain (Acute) Constipation (Acute) BRYANT (dyspnea on exertion) (Acute) Degenerative arthritis of spine (Acute) Diabetes mellitus with renal manifestation (Acute) Disease of thyroid gland (Acute) Easy bruisability (Acute) Erectile dysfunction (Acute) Former smoker (Acute) Gynecomastia (Acute) Hypercalcemia (Acute) Hyperlipidemia (Acute) Hypertension (Acute) Impaired hearing (Acute) Impairment of balance (Acute) Leg pain, bilateral (Acute) Median nerve palsy (Acute) Numbness (Acute) ALEJANDRA on CPAP (Acute) Pneumonia (Acute) Sciatic pain (Acute) Sickle cell anemia (Acute) Spinal stenosis (Acute) Urinary retention (Acute) Physical Therapy Inpatient Evaluation/Re-Eval M1 PT/OT-IP Prior Functional Status Start: 03/15/19 11:26 Freq: NEEDED Status: Active Protocol: Document 03/15/19 11:26 CGR (Rec: 03/15/19 11:36 CGR [id number]) Medical Review Prior Functional Status Medical History Reviewed Yes Communication Pt is [place] but otherwise communicates effectively. Activities of Daily Living and IADL's Pt was ind in all ADLs and functional mobility prior to admit. Social History Household Members spouse Living Arrangements House Number of Floors (Floors) One Floor Number of Stairs To Enter/Railing? 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 M1 PT/OT-IP Prior Functional Status Start: 03/15/19 12:16 Freq: NEEDED Status: Active Protocol: Document 03/15/19 09:45 AB (Rec: 03/15/19 12:36 AB [id number]) Medical Review Prior Functional Status Medical History Reviewed Yes Communication able to make needs known Mobility and Gait pt stated that he is independent with all mobilities and ambulation without AD Activities of Daily Living and IADL's per OT's note: Pt was ind in all ADLs and functional mobility prior to admit. Social History Household Members spouse Living Arrangements House Number of Floors (Floors) One Floor Number of Stairs To Enter/Railing? ramp to enter Home Environment High Toilet Walk in Shower Built-In Shower Seat Ramp Home Equipment Front Wheel Walker Hand Held Shower Long Handled [employer] Sock Aid Grab Bars Near Toilet Grab Bars In Shower Employment Status Retired Additional Social History Comment pt has an adjustable bed pt has a tripod cane M2 PT-IP Current Condition Start: 03/15/19 12:16 Freq: NEEDED Status: Active Protocol: Document 03/15/19 09:45 AB (Rec: 03/15/19 12:36 AB [id number]) Physical Therapy Current Condition Current Condition Evaluation Date 03/15/19 Treatment Diagnosis s/p L3-S1 instru, L3-4 fusion, L4-5 revision lami; difficulty in walking Onset Date 03/14/19 Precautions Lumbar Precautions Log Roll No Twisting Limit Bending Lifting Restriction of 10 lbs Gait Belt above Incisional Area M3 PT-IP Subjective Start: 03/15/19 12:16 Freq: NEEDED Status: Active Protocol: Document 03/15/19 09:45 AB (Rec: 03/15/19 12:36 AB [id number]) Subjective Physical Therapy Visit Type Type Initial Evaluation Visit Start Time 09:45 Visit Stop Time 10:19 Total Visit Minutes 34 Number of LOADING DOCK HAND Visits 0 Physical Therapy Visit Comments Patient Comments pt agreeable to do PT Therapy Pain Assessment Pain When Pain Assessed At Rest Pain Present Pain Present Pain Reported Location Lower Back Intensity 2 Scale Used Numeric (1 - 10) Pain Management Techniques Re-positioning Timing of Activity with Medications M4 PT-IP Mobility and Gait Start: 03/15/19 12:16 Freq: NEEDED Status: Active Protocol: Document 03/15/19 09:45 AB (Rec: 03/15/19 12:36 AB [id number]) PT-Bed Mobility Assessment Rolling Type of Rolling Log Rolling Supine to Sit Supine to Sit Standby Assistance Sit to Supine Sit to Supine Standby Assistance Scooting Scooting to Edge of Bed Standby Assistance Scooting Up and Down in Bed Standby Assistance PT-Transfer Assessment Sit to and From Stand Sit to and from Stand Contact Guard Assistance Equipment Transfer Assistive Device Gait Belt Front Wheeled Walker Orthotic/Prosthetic Devices or Brace: No Transfers Transfer Destination Bed Chair Transfer Technique pt ambulated using FWW Transfer Ability Level of Assist Contact Guard Assistance Gait Assessment Gait Gait Assistance Required: Contact Guard Assist Minimum Assistance Distance (Feet) 50 Able to Maintain Weight Bearing Status Yes During Gait Assistive Devices Assistive Device Gait Belt Front Wheeled Walker Orthotic/Prosthetic Devices or Brace: No Gait Deviations General Gait Pattern Antalgic Decreased Stride Length Decreased Feet Clearance Factors Limiting Gait Function Factors Limiting Gait Function Decreased Activity Tolerance Decreased Strength Limited Range of Motion Pain Poor Balance PT-Balance Assessment Sitting Balance and Reactions Static Sitting Balance Ability Good Dynamic Sitting Balance Ability Good Standing Balance and Reactions Static Standing Balance Ability Fair Dynamic Standing Balance Ability Fair Device Used FWW M5 PT-IP Objective Assessments Start: 03/15/19 12:16 Freq: NEEDED Status: Active Protocol: Document 03/15/19 09:45 AB (Rec: 03/15/19 12:36 AB [id number]) Orientation Orientation/Cognition Level of Alertness Alert Orientation Name Age Birthday Place Situation Language Function Ability Hard of Hearing Memory Description Short Term Impaired Gross Range of Motion Lower Extremity ROM Assessment Within Functional Limits Strength Lower Extremity Strength Assessment Right Impaired Comments Strength Comments RLE: 4-/5 Coordination Assessment Gross Coordination Gross Coordination WNL Sensation Assessment Sensation Gross Sensation WNL Muscle Tone Muscle Tone WNL Yes M6 PT-IP Treatment Start: 03/15/19 12:16 Freq: NEEDED Status: Active Protocol: Document 03/15/19 09:45 AB (Rec: 03/15/19 12:36 AB [id number]) Physical Therapy Treatment Education Education Provided Precautions Weight Bearing Status Post-Op Packet Safety M7 PT-IP Assessment and Plan Start: 03/15/19 12:16 Freq: NEEDED Status: Active Protocol: Document 03/15/19 09:45 AB (Rec: 03/15/19 12:36 AB [id number]) PT Summary Assessment and Plan Potential Rehabilitation Potential Good Status of Condition at Evaluation Stable Summary Impairments Pain ROM Strength Balance Cognition Bed Mobility Transfers Gait Activity Tolerance Assessment Summary pt requiring CGA to min A with mobility and will likely progress during hospital stay. pt plans to go home and stated spouse can assist but not much of physical assistance. caregiver training will be conducted when appropriate. Goals Bed Mobility Goal Independent Transfer Goal Independent Front Wheeled Walker Gait Goal Independent Front Wheel Walker Gait Distance 200 Days to Meet Goals 5 Frequency of Treatment Frequency Of Treatment Twice a Day Treatment Plan Physical Therapy Treatment Plan Bed Mobility Training Transfer Training Gait Training Therapeutic Exercise Balance Retraining Post Op Education Discharge Planning Hot or Cold Pack Neuromuscular Re-ed Coordination Retraining Manual Therapy Other Recommendations and Next Treatment ambulation, bed mobility Focus Recommendations To Nursing Amount of Assist Needed 1 Person Assist Discharge Recommendations PT Discharge Recommendations Home with Assistance
--- NOTE | 2019-03-15 09:50 | PM.PNPO.1 ---
Subjective Date Patient Seen: 03/15/19 Time Patient Seen: 09:50 Interval history: Patient's pain is 2/10. Denies fever chills. No nausea vomiting. Has not yet been up with physical therapy. Exam Vital Signs (past 8 hours): - 03/15/19 04:59 03/15/19 08:00 Temperature 98.5 F 98.5 F Pulse Rate 66 64 Respiratory Rate 16 16 Blood Pressure 152/70 H 131/62 Pulse Oximetry 95 96 Oxygen Delivery Method Room Air,CPAP Oxygen Flow Rate 0 Narrative Exam Narrative: Pleasant 78-year-old male resting comfortably in bed in no apparent distress. Motor functions intact bilateral lower extremities. Sensation grossly intact to light touch bilateral lower extremities. Both legs are warm and dry. Dressing as a small quarter-sized area of drainage otherwise intact. Objective Labs Result Diagrams: 03/15/19 04:42 Labs: Laboratory Results - last 24 hr 03/15/19 04:42 Hgb 12.9 L Hct 37.5 L Assessment & Plan Post-op Postoperative Procedures Operation Date: 03/14/19 07:45 Actual Procedures Side Surgeon p L3-4 TLIF; L4-5, L5-S1 HWR; L3-4,L4-5,L5-S1 PSF w/Instru. Mahnaz Mederos MD Postop day 1. Mobilize with physical therapy. Limit bending, twisting, lifting. Patient has history of urinary retention with Kemp catheter. He does have straight cath supplies at home as needed.
--- NOTE | 2019-03-15 11:36 | OT.IP.EVAL ---
Current Diagnoses Spinal stenosis, lumbar region without neurogenic claudication (03/14/19) Other mechanical complication of other internal orthopedic devices, implants and grafts, initial encounter (03/14/19) Arthrodesis status (03/14/19) Surgery Performed Operation Date: 03/14/19 07:45 Actual Procedures p L3-4 TLIF; L4-5, L5-S1 HWR; L3-4,L4-5,L5-S1 PSF w/Instru. - Mahnaz Mederos MD Past Medical History (Last Updated 03/05/19 @ 10:52 by Yenifer Covington RN) Arthritis (Acute) PAD (peripheral artery disease) (Acute) Anemia (Acute) Arteriosclerotic heart disease (ASHD) (Acute) BPH (benign prostatic hyperplasia) (Acute) CKD (chronic kidney disease), stage III (Acute) Chronic gastritis (Acute) Chronic low back pain (Acute) Constipation (Acute) BRYANT (dyspnea on exertion) (Acute) Degenerative arthritis of spine (Acute) Diabetes mellitus with renal manifestation (Acute) Disease of thyroid gland (Acute) Easy bruisability (Acute) Erectile dysfunction (Acute) Former smoker (Acute) Gynecomastia (Acute) Hypercalcemia (Acute) Hyperlipidemia (Acute) Hypertension (Acute) Impaired hearing (Acute) Impairment of balance (Acute) Leg pain, bilateral (Acute) Median nerve palsy (Acute) Numbness (Acute) ALEJANDRA on CPAP (Acute) Pneumonia (Acute) Sciatic pain (Acute) Sickle cell anemia (Acute) Spinal stenosis (Acute) Urinary retention (Acute) Surgical History (Last Updated 03/05/19 @ 10:55 by Yenifer Covington RN) Hx of angioplasty (Acute 08/07/18) Hx of cardiac catheterization (Acute 08/07/18) Hx of fusion of cervical spine (Acute 10/10/18) History of arthroplasty of left shoulder (Acute) History of arthroplasty of right knee (Acute) History of bilateral carpal tunnel release (Acute) History of colonoscopy (Acute) History of lumbar fusion (Acute 01/11/17) History of parathyroid surgery (Acute) History of vasectomy (Acute) Hx of appendectomy (Acute) Hx of arthroscopy of right knee (Acute) Hx of tonsillectomy (Acute) S/P CABG x 3 (Acute) S/P TURP (status post transurethral resection of prostate) (Acute) Status post cataract extraction of both eyes with insertion of intraocular lens (Acute) Occupational Therapy Inpatient Evaluation/Re-Eval M1 PT/OT-IP Prior Functional Status Start: 03/15/19 11:26 Freq: NEEDED Status: Active Protocol: Document 03/15/19 11:26 CGR (Rec: 03/15/19 11:36 CGR [email or web address]) Medical Review Prior Functional Status Medical History Reviewed Yes Communication Pt is ROSEBUD but otherwise communicates effectively. Activities of Daily Living and IADL's Pt was ind in all ADLs and functional mobility prior to admit. Social History Household Members spouse Living Arrangements House Number of Floors (Floors) One Floor Number of Stairs To Enter/Railing? 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 M2 OT-IP Current Condition Start: 03/15/19 11:26 Freq: Status: Active Protocol: Document 03/15/19 11:26 CGR (Rec: 03/15/19 11:36 CGR [email or web address]) Occupational Therapy Current Condition Current Condition Evaluation Date 03/15/19 Treatment Diagnosis L3-4 TLIF and L4-S1 HWR Diagnosis Onset Date 03/14/19 M3 OT- IP Subjective and Pain Start: 03/15/19 11:26 Freq: Status: Active Protocol: Document 03/15/19 11:26 CGR (Rec: 03/15/19 11:36 CGR [email or web address]) OT- Subjective Occupational Therapy Visit Type Type Initial Evaluation Visit Start Time 10:35 Visit Stop Time 11:15 Total Visit Minutes 40 Occupational Therapy Visit Comments Patient Comments This isn't my first back surgery. OT Pain Assessment Pain When Pain Assessed During Exercise Pain Present Pain Present Pain Reported Location Lower Back Intensity 3 Scale Used Numeric (1 - 10) M4 OT- IP ADL's Start: 03/15/19 11:26 Freq: Status: Active Protocol: Document 03/15/19 11:26 CGR (Rec: 03/15/19 11:36 CGR [email or web address]) OT [id number]-[id number] General Evaluation Self-Feeding Ability Independent OT ADL-Grooming General Evaluation Grooming Ability Independent OT ADL-Oral Care General Eval Oral Care Ability Independent OT ADL-Dressing Comments OT Dressing Comments Educated on LB dressing with hip kit but pt declined to practice. States he has already performed in the past. OT ADL-Toileting General Evaluation Toileting Ability Independent Devices Toileting Assistive Devices Toilet Seat Rails M5 OT- IP IADL's Start: 03/15/19 11:26 Freq: Status: Active Protocol: Document 03/15/19 11:26 CGR (Rec: 03/15/19 11:36 CGR [email or web address]) OT-Instrumental Activities of Daily Living Deficits IADL Deficits Identified No Deficits Home Safety Awareness Awareness of Need for Assistance at Home Good Awareness Ability to Problem Solve Emergency Able to Problem Solve Situations Medication Management Medication Management No Deficits Identified Money Management Money Management No Deficits Identified Meal Preparation Meal Preparation No Deficits Identified Color Dipper Color Dipper No Deficits Identified Driving Driving Caregiver Provides Assist M6 OT- IP Functional Cognition Start: 03/15/19 11:26 Freq: Status: Active Protocol: Document 03/15/19 11:26 CGR (Rec: 03/15/19 11:36 CGR [email or web address]) Cognitive Factors Limiting Selfcare Function Cognitive Ability Level of Alertness Alert Patient Orientation Name Age Birthday Month Date Year Day of Week Place Situation Attention Span Ability Capable of Focused Attention Capable of Sustained Attention Ability to Follow Commands Able to Follow Multi-Step Commands Memory Description No Deficits Noted Safety Awareness No Deficits Noted Problem Solving Ability No deficits Noted Executive Function Ability No Deficits Noted Abstract Thinking Ability No Deficits Noted OT- Vision and Hearing OT- Hearing Assessment OT- Hearing Assessment Hearing Impaired Use of Hearing Aids OT- Vision Assessment Visual Acuity Glasses For Reading Visual Attentiveness WFL Occular Pursuits WFL Visual Convergence WFL Visual [place] WFL M7 OT- IP Mobility and Balance Start: 03/15/19 11:26 Freq: Status: Active Protocol: Document 03/15/19 11:26 CGR (Rec: 03/15/19 11:36 CGR [email or web address]) OT-Transfer Assessment Sit to and From Stand Sit to and from Stand Standby Assistance Transfers Transfer Ability Standby Assistance Technique Transfer Destination Chair Toilet Devices Transfer Assistive Devices Gait Belt Front Wheeled Walker OT- Gait Assessment Gait Gait Assistance Required: Standby Assistance Assistive Devices Assistive Device Gait Belt Front Wheeled Walker Comments Gait Ability Comments for mobility around the room OT- Balance Assessment Sitting Balance and Reactions Static Sitting Balance Ability Normal Dynamic Sitting Balance Ability Normal Standing Balance and Reactions Static Standing Balance Ability Normal Dynamic Standing Balance Ability Normal M8 OT- IP Objective Assessments Start: 03/15/19 11:26 Freq: Status: Active Protocol: Document 03/15/19 11:26 CGR (Rec: 03/15/19 11:36 CGR [email or web address]) OT Gross Range of Motion Upper Extremity Range of Motion Assessment Within Functional Limits OT Strength Upper Extremity Strength Assessment Within Functional Limits Comments Strength Comments Grossly 4+/5 OT- Coordination Assessment Upper Extremity Finger to Nose Test Within Functional Limits Finger Tapping Test Within Functional Limits OT-Muscle Tone Assessment Muscle Tone WNL Yes OT Sensation Assessment Comments Summary Comments No sensation deficits Edema Edema Absent M9 OT- IP Assessment and Plan Start: 03/15/19 11:26 Freq: Status: Active Protocol: Document 03/15/19 11:26 CGR (Rec: 03/15/19 11:36 CGR [email or web address]) OT Summary Assessment and Plan Potential Rehabilitation Potential Excellent Analytic Complexity at Evaluation Low Summary OT Impairments Pain Functional Mobility Dressing Toileting Progress Towards Goals Safe For Discharge Assessment Summary Pt presents s/p back sx. Pt educated on home safety and functional mobility with equitment. Pt shown LB dressing and educated on car transfer. No DME needs for home use given current home set up and equipment. No further OT needs. Frequency of Treatment Frequency Of Treatment Discharge Discharge Recommendations OT Discharge Recommendations Home with Assistance Home Equipment Needs Pt has necessary equipment at home.
[2019-03-15] MEDS: INSULIN ASPART 100 UNIT/ML INSULN PEN 12 UNIT SUBCUT (11:55)
--- NOTE | 2019-03-15 15:05 | PT.IPTN ---
Current Diagnoses Spinal stenosis, lumbar region without neurogenic claudication (03/14/19) Other mechanical complication of other internal orthopedic devices, implants and grafts, initial encounter (03/14/19) Arthrodesis status (03/14/19) Surgery Performed Operation Date: 03/14/19 07:45 Actual Procedures p L3-4 TLIF; L4-5, L5-S1 HWR; L3-4,L4-5,L5-S1 PSF w/Instru. - Mahnaz Mederos MD Physical Therapy Treatment Note M2 PT-IP Current Condition Start: 03/15/19 12:16 Freq: NEEDED Status: Active Protocol: Document 03/15/19 09:45 AB (Rec: 03/15/19 12:36 AB [id number]) Physical Therapy Current Condition Current Condition Evaluation Date 03/15/19 Treatment Diagnosis s/p L3-S1 instru, L3-4 fusion, L4-5 revision lami; difficulty in walking Onset Date 03/14/19 Precautions Lumbar Precautions Log Roll No Twisting Limit Bending Lifting Restriction of 10 lbs Gait Belt above Incisional Area M3 PT-IP Subjective Start: 03/15/19 12:16 Freq: NEEDED Status: Active Protocol: Document 03/15/19 15:05 GGD (Rec: 03/15/19 15:47 GGD [id number]) Subjective Physical Therapy Visit Type Type Treatment Note Visit Start Time 14:40 Visit Stop Time 15:05 Total Visit Minutes 25 Number of INCOME TAX INVESTIGATOR Visits 1 Physical Therapy Visit Comments Patient Comments Pt willing to work with therapy. Therapy Pain Assessment Pain When Pain Assessed During Mobility Pain Present Pain Present Pain Reported Location Lower Back Intensity 3 Scale Used Numeric (1 - 10) M4 PT-IP Mobility and Gait Start: 03/15/19 12:16 Freq: NEEDED Status: Active Protocol: Document 03/15/19 15:05 GGD (Rec: 03/15/19 15:47 GGD [id number]) PT-Bed Mobility Assessment Rolling Type of Rolling Log Rolling Supine to Sit Supine to Sit Standby Assistance Sit to Supine Sit to Supine Standby Assistance Scooting Scooting to Edge of Bed Standby Assistance Scooting Up and Down in Bed Standby Assistance PT-Transfer Assessment Sit to and From Stand Sit to and from Stand Contact Guard Assistance Equipment Transfer Assistive Device Gait Belt Front Wheeled Walker Orthotic/Prosthetic Devices or Brace: No Transfers Transfer Destination Bed Transfer Ability Level of Assist Contact Guard Assistance Gait Assessment Gait Gait Assistance Required: Standby Assistance Contact Guard Assist Distance (Feet) 275 Able to Maintain Weight Bearing Status Yes During Gait Assistive Devices Assistive Device Gait Belt Front Wheeled Walker Orthotic/Prosthetic Devices or Brace: No Gait Deviations General Gait Pattern Antalgic Decreased Stride Length Decreased Feet Clearance Factors Limiting Gait Function Factors Limiting Gait Function Decreased Activity Tolerance Decreased Strength Limited Range of Motion Pain Poor Balance M5 PT-IP Objective Assessments Start: 03/15/19 12:16 Freq: NEEDED Status: Active Protocol: Document 03/15/19 09:45 AB (Rec: 03/15/19 12:36 AB [id number]) Orientation Orientation/Cognition Level of Alertness Alert Orientation Name Age Birthday Place Situation Language Function Ability Hard of Hearing Memory Description Short Term Impaired Gross Range of Motion Lower Extremity ROM Assessment Within Functional Limits Strength Lower Extremity Strength Assessment Right Impaired Comments Strength Comments RLE: 4-/5 Coordination Assessment Gross Coordination Gross Coordination WNL Sensation Assessment Sensation Gross Sensation WNL Muscle Tone Muscle Tone WNL Yes M6 PT-IP Treatment Start: 03/15/19 12:16 Freq: NEEDED Status: Active Protocol: Document 03/15/19 15:05 GGD (Rec: 03/15/19 15:47 GGD [id number]) Physical Therapy Treatment Education Education Provided Precautions M7 PT-IP Assessment and Plan Start: 03/15/19 12:16 Freq: NEEDED Status: Active Protocol: Document 03/15/19 15:05 GGD (Rec: 03/15/19 15:47 GGD [id number]) PT Summary Assessment and Plan Summary Assessment Summary Pt improving with mobility. He was SBA with bed mobility. He was safe and stable with gait with FWW. Pt safe for home D/ C when medically stable. Frequency of Treatment Frequency Of Treatment Twice a Day Recommendations To Nursing Amount of Assist Needed 1 Person Assist Discharge Recommendations PT Discharge Recommendations Home with Assistance
[2019-03-15] MEDS: MAGNESIUM OXIDE 400 MG TABLET PO (17:27)
[2019-03-15] MEDS: INSULIN ASPART 100 UNIT/ML INSULN PEN 20 UNIT SUBCUT (17:28)
--- NOTE | 2019-03-15 20:05 | PC.NURSE ---
1700- Pt reports does not take lantus insulin until 1999. CBG for 1600-216, for 3 units ss plus 20 units scheduled, total 23 units. PP+ CMS+, bilat foot SCD's on. Low back barrier drsg CDI with small serosang old shadow drainage. 97% RA, LS clear, denies SOB. Kemp patent, draining clear yellow urine, remains until AM, Hx BPH, has straight cath supplies at home if needed. BRP to try for BM, given prune juice cocktail. Steady gait with FWW. L hand SL. Bed alarm on.
[2019-03-15] MEDS: SENNOSIDES 8.6 MG TABLET 17.2 MG PO (20:31)
[2019-03-15] MEDS: ATORVASTATIN 20 MG TABLET 80 MG PO (20:32)
[2019-03-15] MEDS: AMLODIPINE 5 MG TABLET 10 MG PO (20:32)
[2019-03-15] MEDS: INSULIN GLARGINE 100 UNIT/ML 3ML PEN 60 UNIT SUBCUT (20:33)
--- NOTE | 2019-03-16 00:54 | PC.NURSE ---
Addendum entered by Sandy Diamond R.N. 03/16/19 05:51: Catheter d'cd as per post op protocol. Patient tolerated well. Instructed in sx/prevention of UTI; verbalizes understanding. Addendum entered by Sandy Diamond R.N. 03/16/19 04:51: 0430 Patient assisted back to bed and SCD's put back on. Complains of 4/10 back pain so medicated with Oxycodone. Still having intermittent abdominal gas pains so medicated with MOM. Addendum entered by Sandy Diamond R.N. 03/16/19 03:10: 0200 Complaining of 7/10 abdominal pain due to gas so assisted to bathroom with 1 assist + walker (needs help to get to standing position). After being up on toilet patient stated he had not passed any flatus but pain was gone. Assisted to sit in recliner per his request; chair alarm on. Original Note: Patient is alert and oriented. Breath sounds CTA; using CPAP with RA sat of 99%. HRR. BP noted to trend higher and is currently 145/65. Denies nausea but is having some gas pains as has not had BM x 3 days; offered warm blanket for comfort but declines. BT present and is passing flatus. Indwelling catheter is patent with clear fiona urine in bag; plan is to DC in a.m. Dressing to back is intact with shadow drainage noted. States pain is 2/10 and declines offer of pain medication or ice pack. Is able to turn himself in bed; instructed to call for assistance if needed. Reportedly out of bed with SBA + walker but patient states he still feels weak when up. CMS is intact bilaterally. Wearing foot SCD's. Fall risk score is high and bed alarm is activated.
[2019-03-16 03:28] VITALS: BP 149/68; PULSE 64; RESP 18; TEMP 36.8; O2SAT 96
[2019-03-16] MEDS: OXYCODONE IR 5 MG TABLET PO ×3 (04:30→13:16)
[2019-03-16] MEDS: MAGNESIUM HYDROXIDE 30 ML UDC PO (04:32)
[2019-03-16 08:00] VITALS: BP 133/66; PULSE 61; RESP 16; TEMP 36.3; O2SAT 95
[2019-03-16] MEDS: INSULIN ASPART 100 UNIT/ML INSULN PEN 12 UNIT SUBCUT ×2 (08:23→12:02)
[2019-03-16] MEDS: INSULIN ASPART 100 UNIT/ML INSULN PEN SUBCUT ×2 (08:23→12:02)
[2019-03-16] MEDS: METOPROLOL ER 50 MG TABLET 150 MG PO (08:24)
[2019-03-16] MEDS: ASCORBIC ACID 500 MG TABLET PO (08:24)
[2019-03-16] MEDS: CHOLECALCIFEROL (VITAMIN D3) 1,000 UNIT TABLET 2000 UNIT PO (08:24)
[2019-03-16] MEDS: CALCIUM CARBONATE 500 MG TAB PO (08:24)
[2019-03-16] MEDS: POTASSIUM CHLORIDE 10 MEQ TAB PO (08:24)
[2019-03-16] MEDS: LISINOPRIL 5 MG TABLET PO (08:25)
[2019-03-16] MEDS: SODIUM CHLORIDE 0.9% FLUSH 10 ML IV (08:25)
[2019-03-16] MEDS: DOCUSATE 100 MG CAPSULE PO (08:25)
[2019-03-16] MEDS: MAG HYDROX/ALUM/SIMETH 30 ML UDC PO (09:21)
[2019-03-16] MEDS: ACETAMINOPHEN 325 MG TABLET 650 MG PO ×2 (09:23→13:16)
--- NOTE | 2019-03-16 09:51 | PC.NURSE ---
Day shift: Pt having some moderate ABD pain/cramping from possible gas pain. Dr Allen made aware and Pt may agree to a SUP MD at some point. OOB to BR and passed some gas and feels better now. NO void yet and no BM. Pt in chair and comfortable. Call light in reach. Pt agrees to not get OOB or chair w/o help from staff.
--- NOTE | 2019-03-16 10:16 | PM.DS.1 ---
History of Present Illness Date Patient Seen: 03/16/19 Time Patient Seen: 10:16 Chief complaint: Translaminar Intebody Fusion/Laminotomy Narrative: Patient is a 78-year-old who was admitted to the hospital for lumbar decompression with spinal instrumentation and fusion. Discharge Providers Date of admission: 03/14/19 06:08 Discharge Date: 03/16/19 Primary care physician: Mariah Dalal Consults: 03/14/19 07:14 Consult to Respiratory Therapy Evaluate & Treat Comment: Physician Instructions: Evaluate and treat 03/14/19 13:23 Consult to Occupational Therapy Evaluate & Treat Comment: Physician Instructions: Evaluate and treat Consult to Physical Therapy Evaluate & Treat Comment: Physician Instructions: Evaluate and Treat Discharge provider: Khoa Allen MD Summary Discharge Diagnosis: Degenerative disc disease, spinal stenosis. Hospital Course: The patient was admitted for planned decompression and instrumented fusion of the lumbar spine. He underwent surgery on the day of admission. He progressed well postoperatively. Patient was having some stomach pains which seem to resolve with a suppository. Status at Discharge Cognitive/behavioral status at discharge: oriented Functional status at discharge: uses cane/walker Overall status at discharge: patient is progressing back to baseline Time Spent with Patient Less than 30 minutes Exam Vital Signs (past 8 hours): - 03/16/19 03:28 03/16/19 08:00 Temperature 98.3 F 97.4 F L Pulse Rate 64 61 Respiratory Rate 18 16 Blood Pressure 149/68 H 133/66 Pulse Oximetry 96 95 Oxygen Delivery Method CPAP Oxygen Flow Rate 0 Skin Other: There is mild drainage on the dressing which was changed. Wound is healing as expected. Lower extremities neurovascularly intact. Expected swelling. Objective Labs Result Diagrams: 03/15/19 04:42 Discharge Plan Discharge Plan Patient Disposition: Home Discharge comment: Patient will be discharged to home and proceed with routine postoperative protocol. Follow up in 2 weeks. Discharge Med Rec/Prescriptions Prescriptions: New oxycodone 5 mg tablet 5 mg PO Q4-6H PRN (Reason: pain) Qty: 60 RF: 0 Continued cholecalciferol (vitamin D3) [Vitamin D3] 2,000 UNIT capsule 2,000 iu PO BID Qty: 0 RF: 0 lisinopril 5 MG tablet 5 mg PO QDAY Qty: 0 RF: 0 metoprolol tartrate 25 MG tablet 150 mg PO QAM Qty: 0 RF: 0 potassium chloride 10 MEQ capsule, extended release 10 meq PO BID Qty: 0 RF: 0 ascorbic acid (vitamin C) 500 MG tablet 500 mg PO TID Qty: 0 RF: 0 calcium carbonate [Tums] 500 MG tablet,chewable 500 mg PO BID Qty: 0 RF: 0 magnesium oxide 400 MG capsule 500 mg PO QPM Qty: 0 RF: 0 atorvastatin [Lipitor] 80 MG tablet 80 mg PO BEDTIME Qty: 0 RF: 0 aspirin 81 MG tablet,delayed release (DR/EC) 81 mg PO BEDTIME Qty: 0 RF: 0 Lantus Solostar U-100 Insulin 100 UNIT/1 ML insulin pen 60 unit SQ QPM Qty: 0 RF: 0 Novolog U-100 Insulin aspart 100 unit/mL Solution 20 unit subcut QPM RF: 0 Novolog U-100 Insulin aspart 100 unit/mL Solution 1 - 8 unit SUBCUT DAILY PRN (Reason: sliding scale for correction) RF: 0 Novolog PenFill U-100 Insulin 100 unit/mL Cartridge 12 unit SUBCUT BID RF: 0 amlodipine 10 mg Tablet 10 mg PO BEDTIME RF: 0 polyethylene glycol 3350 8.5 gram Powder In Packet 8.5 g PO DAILY PRN (Reason: Hypoglycemia) RF: 0 Follow up/Referrals: Mariah Dalal [Primary Care Provider] - Provider Discharge Instructions Diet: Regular Activity: No bending or lifting. Skin/Wound/Dressing Care Report to your healthcare provider any signs of infection, such as:: chills, fever, increased pain, unusual drainage and unusual redness Dressing: May remove in 2-3 days. May shower over incision but no bathing. Discharge Data Primary Care Provider: Mariah Dalal Attending Provider: Mahnaz Mederos Admit Date/Time: 03/14/19 06:08
--- NOTE | 2019-03-16 10:28 | CM.DANOTE ---
Addendum entered by Klarissa Randolph LPN 03/16/19 14:31: Checked in with pt after he worked again with PT and ate lunch. He was feeling much better he said and expressed determination to d/c to his home setting when his arrived at 1300. He remained aware of [facility] information and with no desire to appeal his d/c today. Documented same on JUMA #2. ROB Martinez went over all d/c paperwork when pt's arrived and he went home as planned. Addendum entered by Klarissa Randolph LPN 03/16/19 10:49: Spoke with ROB Martinez again to obtain clarity re Dr. Allen's d/c summary which notes that pt responded well to a suppository and was d/c'd to home setting. Juan noted that pt was feeling better now that he is up, has not had a BM, still no void but can manage this with straight cath at home if need by. Pt at this point has not had a suppository and will not unless he agrees to do so, per Juan. Pt's will be here about 1300. If all does not resolve as expected Juan will call Dr. Lewis and the d/c may be cancelled....Will follow prn. PT will be working with pt which may help move in the bowel funtion process. Will check in later prn. Addendum entered by Klarissa Randolph LPN 03/16/19 10:43: Note now that Juan has discussed case with Dr. Olson who did put in a d/c order for today. Pt has now passed some flatus and feels a bit better. Work will continue on bowels. Pt with no void no BM thus far. Addendum entered by Klarissa Randolph LPN 03/16/19 10:34: Met early this morning with pt as per plan. Introduced self and role. Pt was found lying in bed, looking extremely uncomfortable, said he was waiting for pain medication. ROB Martinez arrived, pt describing very sharp pain like a kidney stone. Juan will be following up with whomever is rounding for ortho team today. He notes this may be severe gas pain. Pt does confirm his plan for home and 's supportive, but not physical, care. He did well in yesterday's therapy sessions. Discussed with team in Rounds. [employer] Sophy will see him today. P: will follow prn....pt may d/c home today if he does well and the pain issues resolve. Original Note: Discharge Planning/Care Management DCP: assessment: case was received yesterday/03/15 and EMR reviewed . Discussed in Team Rounds. PT and OT had been ordered but they had not yet worked with pt. Pt is a 78 year old male who admitted on 03/14 for a planned spinal surgery: Surgeon: Dr. Mederos. Pt has had other spinal surgeries in the past. Payer: Medicare and [employer]. PCP: Mariah Dalal is listed on his demographic sheet. Pt had identified his d/c plan as home with 's support. P: was to check in with pt after therapy had a chance to work with him and follow accordingly for d/c issues and options. CM Discharge Assessment Start: 03/16/19 10:23 Freq: Status: Active Protocol: Document 03/16/19 10:24 ITV (Rec: 03/16/19 10:28 ITV [id number]) Discharge Planning Assessment Advance Directives? Yes Advance Directives on File Yes History Provided By Patient Medical Record Prior Living Arrangements House Household Members spouse Is patient alert and oriented? Yes Comment pt does have a history of urinary retention after a cevallos catheter is placed. Orthopedic team documentation states that pt does have straight cath supplies at home which he uses as need be. Review Status In Process Pre-Anesthesia Assessment Start: 03/03/19 12:39 Freq: Status: Complete Protocol: Document 03/03/19 12:39 CAB (Rec: 03/03/19 15:25 CAB [id number]) Pre-Anesthesia Assessment PAC Comment Cervical fusion 10/10/18 @ w /Dr. Mederos. Hypertension post- operatively w/EKG changes of ST deviation in lateral leads Patient Also Known As (AKA) Giovanny Patient Information Reviewed Via Phone Assessment Assessment Completed With Patient Diagnostic Results BMP/CMP EKG Comment Outside labs(BMP, A1c only)/ EKG scanned to record Primary Care Provider Mariah Dalal Seen Specialist in Last 12 Months Yes Specialist Seen Employee Welfare Manager [employer] Orthopedist Sleep specialist Comment Sleep visit 02/27/19 scanned to record Primary Language Malawian Preferred Language Malawian Patient Access Coordinator Required No Height 182.88 cm Weight 109.769 kg Body Mass Index (BMI) 32.8 Hearing Ability Hard of Hearing Use of Hearing Aid Visual Assist Glasses Dentition Type Teeth, Natural Present Barriers to Learning None Other Aids No Hx Anesthesia Reactions Yes: HTN postoperatively, dysphagia s/p cervical fusion Hx Family Anesthesia Reaction No Hx Malignant Hyperthermia No Hx Blood Transfusions No Anesthesia Review Requested No alcohol intake former Smoking Status Former smoker Tobacco type cigarettes how long ago did patient quit smoking Quit 1998 Substance Use Type does not use Pain Present Pain Reported Musculoskeletal Symptoms Back Pain Difficulty Walking Muscle Cramps Muscle Weakness Numbness Radiating Pain into Limb History of Falling (Recent or History of No ) Patient is completely paralyzed or No completely immobile Mental Status Oriented to own ability Is patient on oxygen? No Does patient have BRYANT/SOB Yes: Yes: BRYANT, chronic Hx Sleep Apnea Yes CPAP/BIPAP use prescribed and used routinely Suspected Sleep Apnea Yes Currently Taking a Beta Tomas Yes: Metoprolol Can You Climb a Flight of Stairs Without No SOB Hx Chest Pain No Hx SOB Yes: BRYANT, chronic Hx Syncope or Dizziness No Anti-Coagulant Therapy No Has a Employee Welfare Manager Yes: Dr. Alcala - last visit 02/14/19 Cardiac Testing Yes: Cath, ECHO, Nuc stress, BLE doppler US Hx Pacemaker/ICD No Pacemaker Rep Required? No Comment Cardiac records scanned to record Diet Type At Home Regular dysphagia Yes: s/p cervical fusion Bladder Pattern Retention Urinary Catheter Present No Hx Urinary Self Catheterization No Diabetes Yes: Pt checks blood sugar 4x/ day HgbA1C 6.0 Date 02/28/19 Hx Drug Resistant Organism No Presence of External or Internal Medical No Devices Have you traveled outside the [facility] States in the last 30 days? Marital Status Lives With spouse Prior Living Arrangements House Number of Floors (Floors) One Floor Number of Stairs To Enter/Railing? Ramp in front Support System Spouse Does the Patient Have Assistance After Yes Surgery Patient Discharge Plan Description Return Home Feels Safe in Current Environment Yes Been Physically Hurt or Threatened By a No Person in Current Environment Do you have thoughts of harming yourself None or others? Are you currently considering suicide? No Do you have a plan to hurt yourself or No Plan others? Do You Have Any Spiritual Beliefs That No May Affect Your HC Choices? Do You Have Any Cultural Practices That No May Affect Your HC Choices? Spiritual Referral None Comment Religion Who Can We Speak to About Patient's Care Family only Identifying Code for Release of Patient Declines to issue Information Health Care Proxy/Next of Kin Edita () Health Care Proxy or [phone] Emergency Contact Name Edita Lo () Emergency Contact or [phone] Advance Directives? Yes: DPOA,Living Will Advance Directives on File Yes Power of Low Emission Automobile Designer Yes Power of Low Emission Automobile Designer Name Diann Robles ( daughter) Power of Low Emission Automobile Designer Phone Number dEita: [phone] or [phone] Diann:[phone] PAC Instructions Bring CPAP/BIPAP Durable medical equipment Medications to take/avoid Nasal antibiotic No ETOH/petroleum product on skin DOS NPO Post-op transportation Pre-surgical wash Sturdy shoes/comfortable clothes Do not bring valuables and remove jewelry
[2019-03-16 10:53] VITALS: BP 122/55; PULSE 65
--- NOTE | 2019-03-16 10:53 | PT.IPTN ---
Current Diagnoses Spinal stenosis, lumbar region without neurogenic claudication (03/14/19) Other mechanical complication of other internal orthopedic devices, implants and grafts, initial encounter (03/14/19) Arthrodesis status (03/14/19) Surgery Performed Operation Date: 03/14/19 07:45 Actual Procedures p L3-4 TLIF; L4-5, L5-S1 HWR; L3-4,L4-5,L5-S1 PSF w/Instru. - Mahnaz Mederos MD Physical Therapy Treatment Note M2 PT-IP Current Condition Start: 03/15/19 12:16 Freq: NEEDED Status: Active Protocol: Document 03/15/19 09:45 AB (Rec: 03/15/19 12:36 AB [id number]) Physical Therapy Current Condition Current Condition Evaluation Date 03/15/19 Treatment Diagnosis s/p L3-S1 instru, L3-4 fusion, L4-5 revision lami; difficulty in walking Onset Date 03/14/19 Precautions Lumbar Precautions Log Roll No Twisting Limit Bending Lifting Restriction of 10 lbs Gait Belt above Incisional Area M3 PT-IP Subjective Start: 03/15/19 12:16 Freq: NEEDED Status: Active Protocol: Document 03/16/19 10:30 CLB (Rec: 03/16/19 11:27 CLB [id number]) Subjective Physical Therapy Visit Type Type Treatment Note Visit Start Time 10:30 Visit Stop Time 10:53 Total Visit Minutes 23 Number of DEVELOPMENT VICE PRESIDENT Visits 2 Physical Therapy Visit Comments Patient Comments Pt willing to work with therapy. Therapy Pain Assessment Pain When Pain Assessed During Mobility Pain Present Pain Present Pain Reported Location Lower Back Intensity 2 Scale Used Numeric (1 - 10) Pain Management Techniques Re-positioning Timing of Activity with Medications M4 PT-IP Mobility and Gait Start: 03/15/19 12:16 Freq: NEEDED Status: Active Protocol: Document 03/16/19 10:30 CLB (Rec: 03/16/19 11:27 CLB [id number]) PT-Transfer Assessment Sit to and From Stand Sit to and from Stand Standby Assistance Equipment Transfer Assistive Device Gait Belt Front Wheeled Walker Transfers Transfer Destination Chair Transfer Technique pt ambulated using FWW Transfer Ability Level of Assist Standby Assistance 1 Person Assistance Comments Mobility Comments Pt required cues for hand placement during stand-sit for safety. Gait Assessment Gait Gait Assistance Required: Standby Assistance Distance (Feet) 250 Able to Maintain Weight Bearing Status Yes During Gait Assistive Devices Assistive Device Gait Belt Front Wheeled Walker Orthotic/Prosthetic Devices or Brace: No Gait Deviations General Gait Pattern Antalgic Decreased Stride Length Decreased Feet Clearance Factors Limiting Gait Function Factors Limiting Gait Function Decreased Activity Tolerance Decreased Strength Limited Range of Motion Pain Poor Balance M5 PT-IP Objective Assessments Start: 03/15/19 12:16 Freq: NEEDED Status: Active Protocol: Document 03/15/19 09:45 AB (Rec: 03/15/19 12:36 AB [id number]) Orientation Orientation/Cognition Level of Alertness Alert Orientation Name Age Birthday Place Situation Language Function Ability Hard of Hearing Memory Description Short Term Impaired Gross Range of Motion Lower Extremity ROM Assessment Within Functional Limits Strength Lower Extremity Strength Assessment Right Impaired Comments Strength Comments RLE: 4-/5 Coordination Assessment Gross Coordination Gross Coordination WNL Sensation Assessment Sensation Gross Sensation WNL Muscle Tone Muscle Tone WNL Yes M6 PT-IP Treatment Start: 03/15/19 12:16 Freq: NEEDED Status: Active Protocol: Document 03/16/19 10:30 CLB (Rec: 03/16/19 11:27 CLB [id number]) Physical Therapy Treatment Exercises Exercises Ankle Pumps Education Education Provided Precautions Other Treatments Other Treatment Performed Pt recalled 3/3 back precautions M7 PT-IP Assessment and Plan Start: 03/15/19 12:16 Freq: NEEDED Status: Active Protocol: Document 03/16/19 10:30 CLB (Rec: 03/16/19 11:27 CLB [id number]) PT Summary Assessment and Plan Summary Assessment Summary Pt is SBA for sit<>stand and ambulation in [place]. Pt recalls 3/3 back precautions. Pt seems safe for home D/C when medically stable. Goals Bed Mobility Goal Independent Transfer Goal Independent Front Wheeled Walker Gait Goal Independent Front Wheel Walker Gait Distance 200 Days to Meet Goals 5 Frequency of Treatment Frequency Of Treatment Twice a Day Treatment Plan Physical Therapy Treatment Plan Bed Mobility Training Transfer Training Gait Training Therapeutic Exercise Balance Retraining Post Op Education Discharge Planning Hot or Cold Pack Neuromuscular Re-ed Coordination Retraining Manual Therapy Recommendations To Nursing Amount of Assist Needed 1 Person Assist Discharge Recommendations PT Discharge Recommendations Home with Assistance
--- NOTE | 2019-03-16 13:46 | PC.NURSE ---
Day shift: Pt left unit via WC to private car driven by spouse. Taken to car by AUSTYN Vazquez. Paperwork signed and all questions answered. New CoverSite placed per MD and is CDI on D/C. Pt has all personal belongings as well as MD scrips. Pt medicated for pain and car ride home just prior to D/C as well.
== END 2019-03-16 13:48 | disposition home or self-care (01) | DRG 454 ==
PROVIDERS: Admitting Provider Orthopaedic Surgery Orthopaedic Surgery of the Spine; Family Provider Hospitalist; PCP Hospitalist; Visit Provider Orthopaedic Surgery Orthopaedic Surgery of the Spine
PROC: 0SG00AJ Fusion of Lumbar Vertebral Joint with Interbody Fusion Device, Posterior Approach, Anterior Column, Open Approach (ICD-10-PCS; principal; 2019-03-14 07:45)
DX: T84.038A Mechanical loosening of other internal prosthetic joint, initial encounter (principal); M96.0 Pseudarthrosis after fusion or arthrodesis; N18.3 Chronic kidney disease, stage 3 (moderate); M47.26 Other spondylosis with radiculopathy, lumbar region; M48.061 Spinal stenosis, lumbar region without neurogenic claudication; M48.07 Spinal stenosis, lumbosacral region; I12.9 Hypertensive chronic kidney disease with stage 1 through stage 4 chronic kidney disease, or unspecified chronic kidney disease; G47.33 Obstructive sleep apnea (adult) (pediatric); G25.81 Restless legs syndrome; E78.5 Hyperlipidemia, unspecified; I25.10 Atherosclerotic heart disease of native coronary artery without angina pectoris; Z87.891 Personal history of nicotine dependence; R10.9 Unspecified abdominal pain; Z79.4 Long term (current) use of insulin; Z95.1 Presence of aortocoronary bypass graft
CPT/HCPCS: 36415; 72100; 76000; 82962; 85014; 85018; 97116; 97161; 97165; 97530; 97535; C1776; C9290; J0131; J0330; J0690; J1100; J1170; J2250; J2405; J2704; J3010; J7121